=== PATIENT | female | born 1975 | race Caucasian/White ===

== ENCOUNTER 2020-07-10 06:41 | Emergency (ER) | payer OTHER, SELFPAY ==
[2020-07-10 06:44] VITALS: BP 161/83; PULSE 117; RESP 18; TEMP 36.1; O2SAT 100; BMI 20.7
--- NOTE | 2020-07-10 07:07 | ED_ITS ---
HPI - General Adult General Chief complaint: Abdominal Pain Stated complaint: ?KIDNEY STONES Time Seen by Provider: 07/10/20 06:59 Source: patient Mode of arrival: ambulatory Limitations: no limitations History of Present Illness HPI narrative: Patient comes emergency room complaining of left-sided flank pain. Patient states it has been hurting for about a week, however the pain became unbearable over night, came this morning because she started urinating blood. Patient states he has had multiple episodes of kidney stones, patient states that she has had multiple procedures of lithotripsy and stone basketing because she has never been able to pass them by herself. At this time, patient denies fever chills, complaining of dysuria and hematuria MD complaint: Flank pain, hematuria Related Data Previous Rx's Medication Instructions Recorded levothyroxine 75 mcg tablet 75 mcg PO DAILY 90 Days #90 tab 04/12/20 allopurinol 100 mg tablet 100 mg PO DAILY 90 Days #90 tab 04/21/20 ketorolac 10 mg PO Q6H PRN 5 Days tab 07/10/20 ketorolac 10 mg PO Q6H PRN 5 Days #14 tab 07/10/20 ketorolac 10 mg PO TID PRN 5 Days tab 07/10/20 ondansetron HCl [Zofran] 4 mg PO Q6H PRN #10 tab 07/10/20 prednisone 20 mg PO DAILY #7 tab 07/10/20 tamsulosin 0.4 mg PO DAILY #7 cap 07/10/20 Allergies Allergy/AdvReac Type Severity Reaction Status Date / Time No Known Allergies Allergy Unverified 03/25/20 18:58 [No Known Allergies*] Review of Systems Review of Systems: Constitutional : No Weight loss, No Fever, No Chills, No Night Sweats, No Fatigue, No Malaise ENT/Mouth : No Hearing loss, No Ear Pain, No Nasal Congestion, No Sinus Pain, No Hoarseness, No sore throat, No Rhinorrhea, No Swallowing Difficulty Eyes: No Eye Pain, No Swelling, No Redness, No Foreign Body, No Discharge, No Vision Changes Cardiovascular : No Chest Pain, No SOB, No Dyspnea on Exertion, No Orthopnea, No Edema, No Palpitations Respiratory : No Cough, No Sputum, No Wheezing, No Smoke Exposure, No Dyspnea Gastrointestinal : No Nausea, No Vomiting, No Diarrhea, No Constipation, No abdominal Pain, No Hematochezia, No Melena, patient complaining of left-sided flank pain radiating towards the left groin Genitourinary : Patient complaining of dysuria and hematuria Musculoskeletal : No joint pain, No Myalgias, No Joint Swelling Skin : No Skin Lesions, No rash Neuro : No Weakness, No Numbness, No Paresthesias, No Loss of Consciousness, No Dizziness, No Headache Psych : No Anxiety/Panic, No Depression, No SI/HI/AH/VH, No Social Issues, Heme/Lymph: No Bruising, No Bleeding,No Lymphadenopathy Endocrine : No Polyuria, No Polydipsia, No Temperature Intolerance [facility] Past Medical History Medical History (Updated 07/10/20 @ 10:36 by Rebeka Davila MD) Hypothyroidism Social History Social History Smoking Status: Never smoker Use of substances other than those prescribed or required for medical reasons: No Advance Directives: No Advance Directives Information Provided: Yes Physical Exam Vital Signs: Vital Signs: Last Vital Signs Temp 97.0 F 07/10/20 06:44 Pulse 111 H 07/10/20 08:00 Resp 18 07/10/20 08:00 BP 113/65 07/10/20 08:00 Pulse Ox 99 07/10/20 08:00 Body Mass Index 20.7 Appearance: Alert. Oriented X3. No acute distress. Patient unable to sit still, looks very uncomfortable Eyes: Pupils equal, round and reactive to light. ENT: Pharynx normal. Neck: Normal inspection. Neck supple. No lymph nodes noted. No crepitus CVS: Normal heart rate and rhythm. Pulses normal. Normal S1 and S2 Respiratory: No respiratory distress. Breath sounds normal. No Wheezing. No rales Abdomen: Soft and nontender. No rigidity. No distention. good BS x4, left flank pain, positive CVA left-sided Skin: Skin warm and dry. Normal skin color. Normal skin turgor. Extremities: No lower extremity edema. No lower extremity edema. No Lacerations . No Rash Neuro: Oriented X 3. No motor deficit. No sensory deficit. Moving all extermities. No slurred speech. Course Course Course Narrative: Patient does have a 4 mm stone in the left ureter. Patient feeling better. Patient will follow-up with Dr. Rod on Sunday. Medical Decision Making Lab Data Result diagrams: 07/10/20 07:20 07/10/20 07:20 Labs: Lab Results 07/10/20 07/10/20 07/10/20 Range/Units 07:20 07:20 07:20 WBC 8.3 (4.8-10.8) X10*3/uL RBC 5.33 (4.20-5.50) X10*6/uL Hgb 14.9 (12.0-16.0) g/dl Hct 45.0 (37-47) % MCV 84.4 (80-98) fL MCH 28.0 (27.0-33.0) pg MCHC 33.1 (31.0-35.0) g/dl RDW 11.9 (11.0-16.0) % Plt Count 180 (160-400) X10*3/uL MPV 10.3 (9.4-12.3) fL Immature Gran % (Auto) 0.2 (0.0-0.4) % Neut % (Auto) 79.2 H (45-73) % Lymph % (Auto) 13.7 L (20-40) % [place] % (Auto) 6.1 (2-11) % Eos % (Auto) 0.4 (0-4) % Baso % (Auto) 0.4 (0-2) % Lymph # (Auto) 1.1 L (1.2-4.9) X10*3/uL [place] # (Auto) 0.5 (0.1-1.2) X10*3/uL Eos # (Auto) 0.0 (0.0-0.4) X10*3/uL Baso # (Auto) 0.0 (0.0-0.2) X10*3/uL Abs Immat Gran (auto) 0.02 (0.00-0.03) X10*3/uL Absolute Neuts (auto) 6.6 (2.0-8.3) X10*3/uL Absolute Nucleated RBC 0.000 (0.0-0.012) X10*3/uL Nucleated RBC % (auto) 0.0 (0.0-0.2) /100WBC Sodium 139 (135-145) mmol/L Potassium 4.1 (3.3-5.1) mmol/l Chloride 105 (96-108) mmol/L Carbon Dioxide 25 (22-29) mmol/L Anion Gap 13 (12-20) BUN 18 H (9-16) mg/dL Creatinine 0.83 (0.5-1.4) mg/dL Estim Creat Clear Calc 74.6 Estimated GFR > 60 Random Glucose 95 (60-115) mg/dL Calcium 8.7 (8.4-10.2) mg/dL Urine Color YELLOW Urine Appearance HAZY Urine pH 5.0 (5.0-8.0) Ur Specific [place] >= 1.030 H (1.005-1.025) Urine Protein 2+ H (NEG-TRACE) MG/DL Urine Glucose (UA) NEG (NEG) MG/DL Urine Ketones NEG (NEG) MG/DL Urine Blood 3+ H (NEG) Urine Nitrite NEG (NEG) Ur Leukocyte Esterase NEG (NEG) Urine RBC TNTC H (0) /HPF Urine WBC 5-9 H (0-4) /HPF Ur Squamous Epith Cells 2+ /LPF Calcium Oxalate Crystal 1+ /LPF Urine Bacteria 1+ /LPF Urine Test NEGATIVE (NEGATIVE) Imaging Data CT scan - abdomen: Radiologist's impression: FINDINGS: LUNG BASES: The visualized lung bases are unremarkable apart from a small calcified granuloma within right lower lobe.. LIVER, GALLBLADDER, AND BILIARY TREE: The liver is normal in size, shape, and attenuation. No focal hepatic lesion or biliary ductal dilatation is present. Gallbladder unremarkable. PANCREAS: Unremarkable. SPLEEN: Unremarkable. ADRENAL GLANDS: Unremarkable. KIDNEYS AND URETERS: There is a 4 mm calculus within the distal left ureter just proximal to where it traverses the broad ligament, approximately 6 cm from the ureterovesical junction. There is minimal upstream hydroureter without significant pelvocaliectasis or hydronephrosis. There are multiple bilateral nonobstructive intrarenal calculi, at least 7 within the left kidney and 3 within the right kidney, majority of which are punctate in size, largest measuring 2 mm. BLADDER: Unremarkable. GASTROINTESTINAL TRACT: The small and large bowel are unremarkable. The appendix is unremarkable. ABDOMINAL WALL: No significant hernia is appreciated. LYMPH NODES: Normal. VASCULAR: Unremarkable. PELVIC VISCERA: Retroflexed uterus. No adnexal abnormalities. OSSEOUS STRUCTURES: Unremarkable. CT/CT abdomen pelvis wo con IMPRESSION: * There is a 4 mm calculus within the distal LEFT ureter just proximal to where it appears as the broad ligament, 6 cm proximal to the ureterovesical junction. Minimal left hydroureter. No significant hydronephrosis or perinephric stranding. * Bilateral nonobstructive calculi, most of which are punctate up to 2 mm. Discharge Plan Discharge Clinical Impression: Ureterolithiasis Patient Disposition: Home, Self-Care Instructions: Kidney Stones (ED), Flank Pain (ED) Additional Instructions: Please call Dr. Rod office on Sunday. Please follow-up with your primary care physician tomorrow. If you have any worsening or new symptoms, please return to the emergency room or call 911 Prescriptions: New ketorolac 10 mg tablet 10 mg PO Q6H PRN (Reason: pain) 5 Days RF: 0 tamsulosin 0.4 mg capsule 0.4 mg PO DAILY Qty: 7 RF: 0 prednisone 20 mg tablet 20 mg PO DAILY Qty: 7 RF: 0 ondansetron HCl [Zofran] 4 mg tablet 4 mg PO Q6H PRN (Reason: nausea and vomiting) Qty: 10 RF: 0 ketorolac 10 mg tablet 10 mg PO TID PRN (Reason: pain) 5 Days RF: 0 ketorolac 10 mg tablet 10 mg PO Q6H PRN (Reason: pain) 5 Days Qty: 14 RF: 0 No Action levothyroxine 75 mcg tablet 75 mcg PO DAILY 90 Days Qty: 90 RF: 2 allopurinol 100 mg tablet 100 mg PO DAILY 90 Days Qty: 90 RF: 2 Referrals: Steve Rod MD [Physician] - 2 days
[2020-07-10 07:27] LABS: MANUAL DIFF FLAG NO
[2020-07-10] MEDS: 0.9 % Sodium Chloride 1,000 ML 999 ML IVCONT (07:27)
[2020-07-10] MEDS: Ketorolac Tromethamine 30 MG/ML VIAL IVPUSH (07:27)
[2020-07-10] MEDS: ondansetron HCL 4 MG/2 ML VIAL IVPUSH (07:27)
[2020-07-10 07:30] VITALS: BP 119/78; PULSE 102; RESP 18; O2SAT 99
[2020-07-10 07:31] LABS: Glucose Urine UA NEG (NEG); Leukocyte Esterase Urine NEG (NEG); Nitrite Urine NEG (NEG); Specific Gravity - Urine >= 1.030 (1.005-1.025); Urine Blood 3+ (NEG); Urine Ketones NEG (NEG); Urine Protein 2+ MG/DL (NEG-TRACE)
[2020-07-10 07:38] LABS: Appearance Urine HAZY; Color Urine YELLOW
[2020-07-10 07:39] LABS: UPreg QC Valid YES; Urine Pregnancy NEGATIVE (NEGATIVE)
[2020-07-10 07:46] LABS: Basophils Percent Auto 0.4 % (0-2); Eosinophils Percent Auto 0.4 % (0-4); Hemoglobin 14.9 g/dl (12.0-16.0); Imm Gran Abs Auto 0.02 X10*3/uL (0.00-0.03); Imm Gran Pct Auto 0.2 % (0.0-0.4); Lymphocytes Absolute Auto 1.1 X10*3/uL (1.2-4.9); Lymphocytes Percent Auto 13.7 % (20-40); Mean Corpuscular HGB Conc 33.1 g/dl (31.0-35.0); Mean Corpuscular Volume 84.4 fL (80-98); Mean Platelet Volume 10.3 fL (9.4-12.3); Monocytes Absolute Auto 0.5 X10*3/uL (0.1-1.2); Monocytes Percent Auto 6.1 % (2-11); Neutrophils Absolute Auto 6.6 X10*3/uL (2.0-8.3); Neutrophils Percent Auto 79.2 % (45-73); Platelet Count 180 X10*3/uL (160-400); Red Blood Count 5.33 X10*6/uL (4.20-5.50); Red Cell Distribution Width 11.9 % (11.0-16.0); White Blood Count 8.3 X10*3/uL (4.8-10.8)
[2020-07-10 07:51] LABS: Bacteria Urine 1+ /LPF; Calcium Oxalate Crystals Urine 1+ /LPF; RBC Urine TNTC /HPF (0); Squamous Epithelial Cell Urine 2+ /LPF; UACC CULT YES
[2020-07-10 07:54] LABS: Anion Gap 13 (12-20); Blood Urea Nitrogen 18 mg/dL (9-16); Calcium 8.7 mg/dL (8.4-10.2); Carbon Dioxide 25 mmol/L (22-29); Chloride 105 mmol/L (96-108); Creatinine Clr Calc Pharmacy 74.6; Estimated Glomerular Filt Rate > 60; Glucose Random 95 mg/dL (60-115); Potassium 4.1 mmol/l (3.3-5.1); Sodium 139 mmol/L (135-145)
--- NOTE | 2020-07-10 07:56 | CT_ITS ---
EXAMINATION: CT ABDOMEN AND PELVIS WITHOUT CONTRAST CLINICAL INFORMATION: Left flank pain COMPARISON: 11/29/2019 TECHNIQUE: Multidetector volumetric imaging was performed from the superior aspect of the liver through the pubic symphysis. Sagittal and coronal reformatted images were obtained on the technologist's workstation. This CT examination was performed using dose optimization techniques as appropriate, variously including the following: *Automated exposure control *Adjustment of mA and/or kV according to patient size (this includes techniques or standardized protocols for targeted exams where dose is matched to indication/reason for exam; i.e. extremities or head) *Use of iterative reconstruction technique DLP: 394 mGy-cm FINDINGS: LUNG BASES: The visualized lung bases are unremarkable apart from a small calcified granuloma within right lower lobe.. LIVER, GALLBLADDER, AND BILIARY TREE: The liver is normal in size, shape, and attenuation. No focal hepatic lesion or biliary ductal dilatation is present. Gallbladder unremarkable. PANCREAS: Unremarkable. SPLEEN: Unremarkable. ADRENAL GLANDS: Unremarkable. KIDNEYS AND URETERS: There is a 4 mm calculus within the distal left ureter just proximal to where it traverses the broad ligament, approximately 6 cm from the ureterovesical junction. There is minimal upstream hydroureter without significant pelvocaliectasis or hydronephrosis. There are multiple bilateral nonobstructive intrarenal calculi, at least 7 within the left kidney and 3 within the right kidney, majority of which are punctate in size, largest measuring 2 mm. BLADDER: Unremarkable. GASTROINTESTINAL TRACT: The small and large bowel are unremarkable. The appendix is unremarkable. ABDOMINAL WALL: No significant hernia is appreciated. LYMPH NODES: Normal. VASCULAR: Unremarkable. PELVIC VISCERA: Retroflexed uterus. No adnexal abnormalities. OSSEOUS STRUCTURES: Unremarkable. CT/CT abdomen pelvis wo con IMPRESSION: * There is a 4 mm calculus within the distal LEFT ureter just proximal to where it appears as the broad ligament, 6 cm proximal to the ureterovesical junction. Minimal left hydroureter. No significant hydronephrosis or perinephric stranding. * Bilateral nonobstructive calculi, most of which are punctate up to 2 mm.
[2020-07-10 08:00] VITALS: BP 113/65; PULSE 111; RESP 18; O2SAT 99
--- NOTE | 2020-07-10 08:45 | PC.NURSE ---
S/P pain meds and warm compress given pt states pain is unchanged 04/17, appears sl restless and grimacing. Dr Davila aware
[2020-07-10] MEDS: Morphine Sulfate 4 MG/ML CARTRIDGE IVPUSH (08:54)
[2020-07-10 10:00] VITALS: BP 128/72; PULSE 103; RESP 16
== END 2020-07-10 11:00 | disposition home or self-care (01) ==
PROVIDERS: Emergency Provider Emergency Medicine; PCP Internal Medicine
DX: N20.2 Calculus of kidney with calculus of ureter (principal); Z87.442 Personal history of urinary calculi
CPT/HCPCS: 36415; 74176; 80048; 81001; 81025; 85025; 87086; 96361; 96374; 96375; 99284; J1885; J2270; J2405

== ENCOUNTER → 2020-07-12 13:12 | Outpatient (BNVA) | payer OTHER, SELFPAY | PROVIDERS: PCP Internal Medicine; Visit Provider Urology | DX: Z76.89 Persons encountering health services in other specified circumstances (principal) ==

== ENCOUNTER 2020-07-14 08:17 | Day surgery (SDC) | payer OTHER, SELFPAY ==
[2020-07-13 11:56] VITALS: BMI 20.5
--- NOTE | 2020-07-13 12:24 | P.CONAN_ITS ---
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 Non-toxic multinodular goiter Family History Family History Father Diabetes mellitus Mother Thyroid cancer Surgical History Surgical History History of ankle surgery History of hip surgery History of knee surgery Social History Social History Smoking Status: Never smoker Second Hand Smoke Exposure: No Use of substances other than those prescribed or required for medical reasons: No Advance Directives: No Advance Directives Information Provided: No Advance Directives on File: No Meds Allergies Allergy/AdvReac Type Severity Reaction Status Date / Time No Known Allergies Allergy Verified 07/14/20 09:05 [No Known Allergies*] Home Medications Medication Instructions Recorded Confirmed Type pyridoxine (vitamin B6) 50 mg 50 mg PO DAILY 07/12/20 07/12/20 History tablet Exam Exam Date and Time: July 13, 2020 1224 Height,Weight and Vital Signs: Height 5 ft 4 in Weight 54.431 kg Pertinent Lab Results Pertinent Lab Results: Laboratory Tests 07/10/20 07/10/20 07:20 07:20 WBC 8.3 Hgb 14.9 Hct 45.0 Plt Count 180 Sodium 139 Potassium 4.1 Chloride 105 Carbon Dioxide 25 BUN 18 H Creatinine 0.83 Assessment and Plan Assessment Anesthesia Assessment: Chart Reviewed Documented by User: Kika Dove 07/14/20 09:43 [facility] Past Medical History Medical History Fibrous dysplasia of bone Aleshia's disease Hypothyroidism 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 Non-toxic multinodular goiter Family History Family History Father Diabetes mellitus Mother Thyroid cancer Surgical History Surgical History History of ankle surgery History of hip surgery History of knee surgery Social History Social History Smoking Status: Never smoker Second Hand Smoke Exposure: No Use of substances other than those prescribed or required for medical reasons: No Advance Directives: No Advance Directives Information Provided: No Advance Directives on File: No Meds Allergies Allergy/AdvReac Type Severity Reaction Status Date / Time No Known Allergies Allergy Verified 07/14/20 09:05 [No Known Allergies*] Home Medications Medication Instructions Recorded Confirmed Type pyridoxine (vitamin B6) 50 mg 50 mg PO DAILY 07/12/20 07/12/20 History tablet Exam Airway Mallampati Class: II TM Dist: >3cm Neck ROM: Full Assessment and Plan Assessment Anesthesia Assessment: Anesthesia Plan Discussed and Chart Reviewed Final Anesthetic Review NPO: Yes ASA Class: II Final Preanesthetic Review: No Changes in Pt Med Stat, Meds/Allgs Chart Reviewed, Consent Obtained/Reviewed and Anes Risks/Benef Reviewed Patient Risk: Low Procedure Risk: Low Assessment/Block/Sedation in SS: Assess/Block/Sedation-SS Anesthetic Plan Anesthetic Plan: GA Disposition: Standard PACU
[2020-07-14] VITALS (8 sets, daily range): BP systolic 117–130; BP diastolic 67–77; PULSE 64–99; RESP 16–20; TEMP 36.3–36.6; O2SAT 98–100
[2020-07-14 08:53] LABS: UPreg QC Valid YES; Urine Pregnancy NEGATIVE (NEGATIVE)
[2020-07-14] MEDS: Lactated Ringers 1,000 ML 100 ML IVCONT (09:13)
[2020-07-14] MEDS: levoFLOXacin/D5W 500 MG/100 ML PIGGYBACK 100 MG IV (09:14)
--- NOTE | 2020-07-14 10:01 | MHC.SHP ---
Pre-Procedural Eval Section A The patient is an INPATIENT: No The History & Physical has been completed within 30 days and I have reviewed it.: Yes Section B Chief Complaint: Hydronephrosis Allergies: Allergies Allergy/AdvReac Type Severity Reaction Status Date / Time No Known Allergies Allergy Verified 07/14/20 09:05 [No Known Allergies*] Plan Diagnosis/Plan: Unchanged I have reviewed the history and physical and performed a pertinent physical examination on my patient. No changes have occurred unless specified.
--- NOTE | 2020-07-14 10:51 | P.BOP_ITS ---
Brief Operative Note Date of Service: 07/14/20 Pre-op diagnosis: left ureteral stone with hydro Post-op diagnosis: same Procedure: Cystoscopy left retrograde followed by ureteral dilatation, left ureteroscopy, laser stone ablation, stone extraction, placement of left double-J stent Implants: Six Turkish by 24 cm double-J stent with the string left in place. Taped to right inner thigh per patient request Surgeon: Latrell Tidwell III, MD Anesthesia: GLMA Estimated blood loss (mL): 0 Pathology: other ([employer] samples of stone sent to pathology) Condition: stable Disposition: same day
[2020-07-14] MEDS: Acetaminophen 325 MG TABLET 650 MG PO (11:10)
[2020-07-14] MEDS: oxyCODONE HCl Immed Release 5 MG TABLET PO (11:10)
[2020-07-14] MEDS: Ketorolac Tromethamine 15 MG/ML VIAL IVPUSH (11:10)
--- NOTE | 2020-07-14 12:07 | HO.POSTANES ---
Post Anesthesia Evaluation Post Anesthesia Evaluation Vital Signs: Vital Signs Temp Pulse Resp BP Pulse Ox 07/14/20 11:36 97.9 F 88 20 128/76 100 07/14/20 11:25 86 18 130/73 100 07/14/20 11:10 77 20 130/74 98 07/14/20 11:05 64 18 117/67 100 07/14/20 11:00 69 16 120/70 99 07/14/20 10:55 97.9 F 67 16 123/76 100 07/14/20 09:54 97.4 F 99 16 130/77 100 07/14/20 09:07 97.4 F 99 16 130/77 100 Anesthesia: General LMA Mental Status: Awake Pain Control: Satisfactory Nausea/Vomiting: None Hydration: Adequate Anesthesia-Related Issues: No Anes. Related Issues
--- NOTE | 2020-07-15 18:42 | OP_ITS ---
SURGEON: Latrell Tidwell III, MD PREOPERATIVE DIAGNOSIS: Left ureteral stone with hydronephrosis. POSTOPERATIVE DIAGNOSIS: Left ureteral stone with hydronephrosis. PROCEDURE PERFORMED: 1. Cystoscopy. 2. Left retrograde. 3. Left ureteral dilatation. 4. Left ureteroscopy. 5. Laser stone ablation. 6. Stone extraction. 7. Left stent placement. ESTIMATED BLOOD LOSS: None. COMPLICATIONS: None. ANESTHESIA: General. ASSISTANTS: SPECIMENS: COMPLICATIONS: None. DESCRIPTION OF PROCEDURE: The patient was taken to the operating room. After adequate anesthesia was obtained, had a time-out done demonstrating correct patient, correct procedure, and correct site. Following this, the patient subsequently underwent cystoscopy followed left retrograde demonstrated distal stone with hydronephrosis. The patient had a Glidewire pace without any difficulty. The ureteral dilatation was done and subsequently ureteroscopy was undertaken. Stone was encountered, fractured with the laser, removed with a Vangie-Catch basket, rechecked. There was no further stone in the patient's ureter. The patient had a 6-Guyanese x 24 cm double-J stent placed leaving the string on taped to the right anterior thigh per the patient request. The patient tolerated procedure well with no complications. SPECIMEN: Sent to pathology. DRAINS: 6-Guyanese x 24 cm double-J stent. MD BONITA Peña III/LOUISE / [id number]
== END 2020-07-14 12:22 | disposition home or self-care (01) ==
PROVIDERS: Nurse Practitioner; PCP Internal Medicine; Visit Provider Urology
PROC: (CPT 52356; principal; 2020-07-14 10:20)
DX: N13.2 Hydronephrosis with renal and ureteral calculous obstruction (principal); Z87.442 Personal history of urinary calculi; Q78.1 Polyostotic fibrous dysplasia; E03.9 Hypothyroidism, unspecified; E06.3 Autoimmune thyroiditis; Z79.52 Long term (current) use of systemic steroids; Z79.899 Other long term (current) drug therapy
CPT/HCPCS: 52356; 81025; 82365; 88300; C1769; C2617; J1100; J1580; J1885; J1956; J2405; J3010; Q9967

== ENCOUNTER 2021-01-04 09:53 | Outpatient (REF) | payer OTHER, SELFPAY ==
--- NOTE | ~2021-01-04 | US_ITS ---
EXAMINATION: US RETROPERITONEAL LIMITED (RENAL ONLY) CLINICAL INFORMATION: Hydronephrosis with renal and ureteral calculous obstruction. COMPARISON: CT abdomen and pelvis without contrast dated 07/10/2020. TECHNIQUE: Real-time imaging of the kidneys. FINDINGS: RIGHT KIDNEY: 9.9 x 4.3 x 5.4 cm (SAG x AP x TRV). The kidney is normal in size, contour, and echogenicity. Renal cortical thickness is normal. There are several small echogenic foci with twinkle artifact questionable for small stones. The largest measures 2 x 3 mm in the mid pole. No focal parenchymal lesions or hydronephrosis. LEFT KIDNEY: 11.1 x 4.6 x 4.1 cm (SAG x AP x TRV). The kidney is normal in size, contour, and echogenicity. Renal cortical thickness is normal. There is mild left hydronephrosis. There is a 4 x 8 mm stone is seen in the left proximal ureter. There are small left renal stones, largest measuring 3 mm in the upper pole No focal parenchymal lesions. INCIDENTAL FINDING: Bilateral ureteral jets are demonstrated. US/US renal BI IMPRESSION: Bilateral renal stones. Mild left hydronephrosis from a left proximal ureteral stone.
== END 2021-01-04 09:54 | disposition home or self-care (01) ==
LOC: HO.US 09:53
PROVIDERS: Visit Provider Urology
DX: N13.2 Hydronephrosis with renal and ureteral calculous obstruction (principal)
CPT/HCPCS: 76775

== ENCOUNTER 2021-01-06 06:19 | Outpatient (REF) | payer OTHER, SELFPAY ==
[2021-01-06 07:41] LABS: Alanine Aminotransferase 22 U/L (0-31); Albumin Level 4.6 g/dL (3.5-5.0); Alkaline Phosphatase 55 U/L (39-117); Anion Gap 10 (12-20); Aspartate Amino Transferase 21 U/L (5-31); Bilirubin Total 0.7 mg/dL (0.0-1.0); Blood Urea Nitrogen 22 mg/dL (9-16); Calcium 9.7 mg/dL (8.4-10.2); Carbon Dioxide 27 mmol/L (22-29); Chloride 107 mmol/L (96-108); Estimated Glomerular Filt Rate 59; Glucose Fasting 86 mg/dL (60-99); Magnesium 2.4 mg/dL (1.6-2.6); Phosphorus 3.5 mg/dL (2.7-4.5); Sodium 139 mmol/L (135-145); Total Protein 7.2 g/dL (6.5-8.0)
[2021-01-06 07:51] LABS: Free T4 (Free Thyroxine) 1.13 ng/dL (0.71-1.85); Thyroid Stimulating Hormone 0.54 uIU/mL (0.32-4.0); Vitamin D 25-OH Total 46.4 ng/mL (>30)
[2021-01-06 09:12] LABS: Total Volume 24 Hour Urine 2975 mL
[2021-01-06 09:46] LABS: Creatinine, 24Hr Urine 1.2 G/Day (1.0-2.0); Creatinine, mg/dL 41.99
[2021-01-07 13:12] LABS: Calcium (PTHI) 9.4 mg/dL (8.6-10.2); PTHI 47 pg/mL (14-64)
[2021-01-07 18:07] LABS: Calcium, 24 Hr Urine 470 mg/24 h; Calcium/Creatinine Ratio 359 mg/g creat (30-275); Creatinine 24Hr Urine 1.31 g/24 h (0.50-2.15)
[2021-01-11 08:42] LABS: Alkaline Phosphatase Bone 10.7 mcg/L (5.0-18.8)
[2021-01-13 06:22] LABS: VITAMIN D (1,25 OH) D3 70 pg/mL; Vit D (1,25-Dihydroxy) Total 70 pg/mL (18-72); Vitamin D (1,25 OH) D2 <8 pg/mL
== END 2021-01-06 06:20 | disposition home or self-care (01) ==
LOC: HO.LAB 06:19
PROVIDERS: PCP Internal Medicine; Visit Provider Internal Medicine Endocrinology, Diabetes & Metabolism
DX: E03.9 Hypothyroidism, unspecified (principal); N20.0 Calculus of kidney
CPT/HCPCS: 36415; 80053; 82306; 82340; 82570; 82652; 83735; 83970; 84075; 84100; 84439; 84443

== ENCOUNTER → 2021-01-13 10:47 | Outpatient (BNVA) | payer OTHER, SELFPAY | PROVIDERS: PCP Internal Medicine; Visit Provider Urology ==

== ENCOUNTER 2021-01-17 15:10 | Day surgery (SDC) | payer OTHER, SELFPAY ==
[2021-01-17] VITALS (15 sets, daily range): BP systolic 116–140; BP diastolic 73–103; PULSE 85–104; RESP 14–27; TEMP 36.5–37.2; O2SAT 96–99; BMI 22.1
--- NOTE | 2021-01-17 17:07 | P.CONAN_ITS ---
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 Non-toxic multinodular goiter Family History Family History Father Diabetes mellitus Mother Thyroid cancer Surgical History Surgical History History of ankle surgery History of hip surgery History of knee surgery Social History Social History Patient Tobacco Use Status: Never used Tobacco Second Hand Smoke Exposure: No Use of substances other than those prescribed or required for medical reasons: No Advance Directives: No Advance Directives Information Provided: No Recently lost weight without trying: No Meds Allergies Allergy/AdvReac Type Severity Reaction Status Date / Time No Known Allergies Allergy Verified 07/14/20 09:05 [No Known Allergies*] Home Medications Medication Instructions Recorded Confirmed Last Taken Type pyridoxine (vitamin B6) 50 mg 50 mg PO DAILY 07/12/20 07/12/20 Unknown History tablet Exam Exam Date and Time: January 17, 2021 1707 Height,Weight and Vital Signs: Height 5 ft 3 in Weight 56.699 kg Last Vital Signs Temp 98.9 F 01/17/21 15:25 Pulse 102 H 01/17/21 16:02 Resp 20 01/17/21 15:25 BP 116/77 01/17/21 16:02 Pulse Ox 97 01/17/21 15:25 Airway Mallampati Class: II TM Dist: >3cm Neck ROM: Full Denture: Upper Heart: RRR Lungs: CTA
--- NOTE | 2021-01-17 18:23 | MHC.SHP ---
Pre-Procedural Eval Section A Date of Service: 01/17/21 Section B Chief Complaint: Calculus of Kidney Details of Present Illness: Persistent pain on left side. Imaging with distal left stone. Recommendation for intervention. This is been organized for her to come in from home today. Relevant Family History (Specify if Yes): No Relevant Social History: None Present Medications: see Short Stay Collaborative assessment Medical History: No relevant PMH History of Previous Operations: Relevant previous surgery/procedure and date(s) Allergies: Allergies Allergy/AdvReac Type Severity Reaction Status Date / Time No Known Allergies Allergy Verified 07/14/20 09:05 [No Known Allergies*] Review of Systems Sugical H&P ROS: Negative: Constitution, Cardiovascular, Respiratory, Neurological, Psychiatric, Hem-Onc, Allergic/Immunologic, Gastrointestinal, Genitourinary, Musculoskeletal, Integumentary, Endocrine and Eyes/Ears/Nose/Throat Exam Surgical H&P Exam: Normal: HEENT, Normal: Heart, Normal: Lungs, Normal: Extremities, Normal: Abdomen, Normal: Skin and Normal: Neurological Plan Diagnosis/Plan: Unchanged (Left distal ureteroscopy, laser lithotripsy, stent placement) I have reviewed the history and physical and performed a pertinent physical examination on my patient. No changes have occurred unless specified.
[2021-01-17] MEDS: levoFLOXacin 500 MG TABLET PO (19:00)
--- NOTE | 2021-01-17 19:37 | W.PM.OPN ---
Operative Note Operative Note Date of Service: 01/17/21 Narrative: PreOperative Diagnosis: Left hydronephrosis with proximal ureteric stone Post Operative Diagnosis: Left renal stone Procedure: - left cystoscopy, retrograde - left dilatation of ureteric orifice under fluoroscopy - left ureteroscopy, stone basketing Surgeon: Dr Steve Rod Anesthesia: General Indications for procedure: Pain on left side in December. Imaging showed 6 mm stone in the upper ureter. Order past. Persistent pain with nausea. Requested intervention. Based on location proceeding with ureteroscopy, laser lithotripsy, stent placement Procedure: After informed consent was verified patient was brought to the operating placed in supine position. Anesthesia was administered per protocol. Patient was placed in modified dorsal lithotomy position and prepped and draped in a sterile fashion. Safety pause time-out and side of surgery confirmed. Antibiotics confirmed. Cystoscopy performed with 22 Cameroonian cystoscope. Both ureteric orifices normal position. Left ureteric orifice cannulated in an retrograde examination performed. No clear filling defects seen within the ureter. Question of filling defect within the kidney. Sensor guidewire placed. There was a large amount of debris that was then expelled from the left ureter. Rigid ureteroscopy performed. No stone encountered up to the upper ureter. Ureteric access sheath placed. Flexible ureteral scope performed. Stone encountered in kidney. Stone basketed and able to be withdrawn down access sheath. Rest of kidney examined. Dilated calices consistent with previous obstruction. Appeared to be chronic in nature. Decision made not to leave a stent. Flexible ureteral scope removed. Sheath removed. Bladder emptied. She tolerated the procedure well was extubated in operating room transferred in stable condition to the recovery area. Pathology: stones Drains: none
[2021-01-17] MEDS: ondansetron HCL 4 MG/2 ML VIAL IVPUSH (20:25)
[2021-01-17] MEDS: fentaNYL citrate/PF 100 MCG/2 ML VIAL 25 MCG IVPUSH ×4 (20:38→21:05)
[2021-01-17] MEDS: oxyCODONE HCl Immed Release 5 MG TABLET PO (20:51)
[2021-01-17] MEDS: Phenazopyridine HCL 100 MG TABLET PO (20:51)
--- NOTE | 2021-01-17 23:48 | HO.POSTANES ---
Post Anesthesia Evaluation Post Anesthesia Evaluation Vital Signs: Vital Signs Temp Pulse Resp BP Pulse Ox 01/17/21 21:10 89 27 H 137/74 97 01/17/21 21:05 97.9 F 88 17 137/76 96 01/17/21 20:56 16 01/17/21 20:55 88 16 128/73 97 01/17/21 20:48 16 01/17/21 20:44 92 16 120/79 97 01/17/21 20:38 88 17 133/77 98 01/17/21 20:30 85 17 140/77 H 99 01/17/21 20:15 89 16 128/80 99 01/17/21 20:00 92 16 128/80 99 01/17/21 19:55 89 16 136/74 98 01/17/21 19:50 94 15 130/80 98 01/17/21 19:48 97.7 F 88 14 139/78 96 01/17/21 16:02 102 H 116/77 01/17/21 15:25 98.9 F 104 H 20 126/103 H 97 Anesthesia: General Mental Status: Awake Pain Control: Satisfactory Nausea/Vomiting: None Hydration: Adequate Anesthesia-Related Issues: No Anes. Related Issues
[2021-01-22 20:12] LABS: Stone Source LEFT URETERAL STONE
== END 2021-01-17 21:32 | disposition home or self-care (01) ==
PROVIDERS: PCP Internal Medicine; Visit Provider Urology
PROC: (CPT 52352; principal; 2021-01-17 16:50)
DX: N20.0 Calculus of kidney (principal); R82.994 Hypercalciuria; E03.9 Hypothyroidism, unspecified; Z79.899 Other long term (current) drug therapy
CPT/HCPCS: 52352; 82365; 88300; C1769; C1894; J0131; J1100; J1885; J2250; J2405; J3010; Q9967

== ENCOUNTER 2021-01-19 19:45 | Inpatient (IN) | payer OTHER, SELFPAY ==
--- NOTE | ~2021-01-19 | CT_ITS ---
EXAMINATION: CT ABDOMEN AND PELVIS WITHOUT CONTRAST CLINICAL INFORMATION: Evaluate persistent fever and pain. COMPARISON: CT scan of the abdomen and pelvis dated 01/20/2021, 07/10/2020 and 09/29/2019. TECHNIQUE: Multidetector volumetric imaging was performed from the superior aspect of the liver through the pubic symphysis. Sagittal and coronal reformatted images were obtained on the technologist workstation. This CT examination was performed using dose optimization techniques as appropriate, variously including the following: *Automated exposure control *Adjustment of mA and/or kV according to patient size (this includes techniques or standardized protocols for targeted exams where dose is matched to indication/reason for exam; i.e. extremities or head) *Use of iterative reconstruction technique DLP: 424 mGy-cm. FINDINGS: LUNG BASES: 2 mm solid noncalcified pulmonary nodule in the lateral right lower lobe (series 7, image 3) is unchanged dating back to 09/29/2019, consistent with a benign finding. Mild dependent atelectasis in both lower lobes. Trace bilateral pleural effusions and associated mild dependent atelectasis. LIVER, GALLBLADDER, AND BILIARY TREE: The liver is normal in size, shape, and attenuation. No focal hepatic lesion on noncontrast imaging. No biliary ductal dilatation is present. The gallbladder is unremarkable with no evidence of radiopaque gallstones, gallbladder wall thickening, or obvious pericholecystic inflammatory changes. PANCREAS: Unremarkable on noncontrast imaging. SPLEEN, ADRENAL GLANDS: Unremarkable on noncontrast imaging. KIDNEYS AND URETERS: The left kidney is asymmetrically larger than the right kidney, measuring 12 cm versus 10 cm on the right side. Mild fullness of the left renal pelvis and proximal left ureter again seen, unchanged from recent prior study. There are at least 5 tiny 1 to 3 mm nonobstructing calcification seen scattered throughout the left kidney, too small to characterize with pixel attenuation values extending up to 217 Hounsfield units. There are also 3 punctate 1 to 2 mm calcification in the upper pole of the right kidney. Findings are similar to the appearance on 07/10/2020. No right hydronephrosis or hydroureter seen. Previously seen distal left ureteral calculus no longer visualized. No perinephric stranding. BLADDER: Unremarkable. PELVIC VISCERA: Uterus retroverted and retroflexed. No suspicious adnexal mass. Trace physiologic pelvic free fluid. GASTROINTESTINAL TRACT: The small and large bowel are decompressed. Residual contrast is seen throughout the colon. The appendix is unremarkable. ABDOMINAL WALL: No significant hernia is appreciated. LYMPH NODES, VASCULAR: Unremarkable. OSSEOUS STRUCTURES: Acute anterior angulation of the distal coccyx again seen, unchanged. No suspicious bone findings. CT/CT abdomen pelvis wo con IMPRESSION: 1. Mild persistent fullness of the left renal pelvis and proximal left ureter without obstructing stone or mass seen. 2. Bilateral tiny nonobstructing renal calculi are similar to prior study. 3. No evidence of obstructive uropathy. 4. Interval development of trace bilateral pleural effusions.
--- NOTE | ~2021-01-19 | CT_ITS ---
EXAMINATION: CT ABDOMEN AND PELVIS WITH CONTRAST CLINICAL INFORMATION: Flank pain, fever COMPARISON: 07/10/2020 TECHNIQUE: Multidetector volumetric images were obtained from the superior aspect of the liver through the pubic symphysis following administration 85 mL of Omnipaque 350 intravenous contrast. Sagittal and coronal reformatted images were obtained on the technologist's workstation. Oral contrast: No This CT examination was performed using dose optimization techniques as appropriate, variously including the following: *Automated exposure control *Adjustment of mA and/or kV according to patient size (this includes techniques or standardized protocols for targeted exams where dose is matched to indication/reason for exam; i.e. extremities or head) *Use of iterative reconstruction technique DLP: 429 mGy-cm FINDINGS: LUNG BASES: The visualized lung bases are unremarkable. LIVER, GALLBLADDER, AND BILIARY TREE: The liver is normal in size, shape, and attenuation. Small hypodensity near the gallbladder fossa is suggestive of a cyst. No biliary ductal dilatation is present. The gallbladder is unremarkable with no evidence of radiopaque gallstones, gallbladder wall thickening, or obvious pericholecystic inflammatory changes. PANCREAS: Unremarkable. SPLEEN: Unremarkable. ADRENAL GLANDS: Unremarkable. KIDNEYS AND URETERS: Bilateral nephrograms are symmetric. There are a few scattered tiny calculi in the left kidney, with no ureteral calculus seen. There is mild asymmetric prominence of the left renal pelvis and ureter, with mild mural enhancement noted. No right hydronephrosis. BLADDER: Partially distended with slight mural prominence. Focus of gas noted in the bladder. GASTROINTESTINAL TRACT: The small and large bowel are unremarkable. The appendix is unremarkable. ABDOMINAL WALL: No significant hernia is appreciated. LYMPH NODES: Normal. VASCULAR: There is mild atherosclerotic calcification. PELVIC VISCERA: Unremarkable. Small amount of free fluid is present in the pelvis. OSSEOUS STRUCTURES: Unremarkable. CT/CT abdomen pelvis w con IMPRESSION: 1. Mild mural enhancement of the left ureter and mildly dilated renal pelvis, which could reflect ascending infection in the setting of flank pain and fever. Few tiny scattered calculi in the left kidney, with no obstructing ureteral calculus seen. 2. Slight mural prominence of the urinary bladder, which could be secondary to cystitis. Small focus of gas in bladder could be secondary to recent catheterization or infection. 3. Trace nonspecific pelvic free fluid, which may be physiologic.
[2021-01-19 20:03] VITALS: BP 144/78; PULSE 120; RESP 18; TEMP 37.7; O2SAT 97; BMI 22.1
[2021-01-19 21:15] LABS: Appearance Urine HAZY; Color Urine YELLOW; Glucose Urine UA 100 MG/DL (NEG); Leukocyte Esterase Urine 2+ (NEG); Nitrite Urine POS (NEG); UACC Culture Trigger YES; Urine Blood 3+ (NEG); Urine Ketones NEG (NEG); Urine Protein 2+ MG/DL (NEG-TRACE)
[2021-01-19 21:17] LABS: UPreg QC Valid YES; Urine Pregnancy NEGATIVE (NEGATIVE)
[2021-01-19 21:24] VITALS: BP 116/72; PULSE 111; RESP 18; TEMP 37.9; O2SAT 98
[2021-01-19 21:25] LABS: Bacteria Urine 1+ /LPF; RBC Urine 30-49 /HPF (0); Squamous Epithelial Cell Urine 1+ /LPF
--- NOTE | 2021-01-19 21:25 | PC.NURSE ---
Patient states On Sunday01/17/21, I had an 8mm stone on my left side, that (urology) went in to break up the stone and put a stent in my kidney, but for whatever reason, he didn't put the stent in. I called before coming here and he told me to come in. Pt requesting COVID swab because the delta variant of COVID is running rampant and I was in the hospital for like 8 hours so I just want to rule it out . aware and to evaluate patient shortly. Will continue to monitor.
--- NOTE | 2021-01-19 22:34 | ED_ITS ---
HPI - Abdominal Pain General Chief Complaint: Abdominal Pain Stated Complaint: PT following up after surgery per PCP Time Seen by Provider: 01/19/21 22:25 Source: patient Mode of arrival: ambulatory History of Present Illness HPI narrative: 45-year-old female with history of calcium disorder and multiple lithotripsies for ureterolithiasis presents after lithotripsy 2 days ago and worsening left flank pain with fever, chills, nausea but denies any vomiting at this time. Patient endorses a history of sepsis secondary to her post lithotr ipsy procedures and states she feels like this may be similar. Related Data Home Medications Medication Instructions Recorded Confirmed pyridoxine (vitamin B6) 50 mg 50 mg PO DAILY 07/12/20 07/12/20 tablet Previous Rx's Medication Instructions Recorded allopurinol 100 mg tablet 100 mg PO DAILY 90 Days #90 tab 04/21/20 ketorolac 10 mg PO Q6H PRN 5 Days tab 07/10/20 ketorolac 10 mg PO Q6H PRN 5 Days #14 tab 07/10/20 ketorolac 10 mg PO TID PRN 5 Days tab 07/10/20 ondansetron HCl [Zofran] 4 mg PO Q6H PRN #10 tab 07/10/20 indapamide 2.5 mg tablet 2.5 mg PO DAILY 90 Days #90 tab 01/13/21 oxycodone-acetaminophen 5 mg-325 1 tab PO Q6H PRN #14 tab 01/13/21 mg tablet pyridoxine (vitamin B6) 100 mg 100 mg PO DAILY 90 Days #90 tab 01/13/21 tablet levothyroxine 75 mcg tablet 75 mcg PO DAILY #90 tab 01/17/21 phenazopyridine [Pyridium] 100 mg PO TID PRN 4 Days #12 tab 01/17/21 Allergies Allergy/AdvReac Type Severity Reaction Status Date / Time No Known Allergies Allergy Verified 01/19/21 21:39 [No Known Allergies*] Review of Systems Review of Systems Pertinent positives and negatives as stated in HPI 10 point review of systems is otherwise negative. Physical Exam Vital Signs: Vital Signs: Last Vital Signs Temp 100.2 F 01/19/21 21:24 Pulse 69 01/20/21 04:09 Resp 16 01/20/21 04:09 BP 118/53 L 01/20/21 04:09 Pulse Ox 98 01/20/21 04:09 Body Mass Index 22.1 VITAL SIGNS: Reviewed. GENERAL: Well developed, well nourished, in no acute distress. HEAD: Normocephalic/atraumatic EYES: PERRLA, EOMI EARS: Ext canals without abnormality NOSE: Nares patent bilateral OROPHARYNX: no oral lesions noted, posterior pharynx clear, tacky mucosa NECK: Supple, no adenopathy LUNGS: Normal breath sounds. No adventitious sounds or accessory muscle use. SpO2<98> CARDIOVASCULAR: Regular rate and rhythm without noted murmurs ABDOMEN: Soft, non-tender, non-distended with bowel sounds, left flank pain with positive CVA tenderness SKIN: Inspection of the skin reveals no rashes NEUROLOGIC: Alert and oriented x 4. Course Course Course Narrative: 2234: 45-year-old female with history and clinical presentation consistent with suspected pyelonephritis but possible recurrence of ureterolithiasis and on review of initial urinalysis evidence of UTI. Patient will receive antibiotics, and have lactic acid/blood culture/labs drawn, and IV fluids that she will receive are primarily for renal flushing as there is no current indication for sepsis fluids at this time. Patient will receive c ombination analgesics for fever and pain as well as Zofran for nausea. Review of all investigations consistent with pyelonephritis and on re-evaluation patient remains feeling poorly with nausea and pain. This case was discussed with the inpatient hospitalist who is agreeable for admission. MDM - Abdominal Pain Lab Data Result diagrams: 01/19/21 22:56 01/19/21 22:56 Labs: Lab Results 01/19/21 01/19/21 01/19/21 Range/Units 21:06 21:06 22:56 WBC 9.2 (4.8-10.8) X10*3/uL RBC 5.49 (4.20-5.50) X10*6/uL Hgb 15.4 (12.0-16.0) g/dl Hct 46.9 (37-47) % MCV 85.4 (80-98) fL MCH 28.1 (27.0-33.0) pg MCHC 32.8 (31.0-35.0) g/dl RDW 12.3 (11.0-16.0) % Plt Count 115 L D (160-400) X10*3/uL MPV 10.4 (9.4-12.3) fL Immature Gran % (Auto) 0.1 (0.0-0.4) % Neut % (Auto) 83.8 H (45-73) % Lymph % (Auto) 10.4 L (20-40) % [place] % (Auto) 5.5 (2-11) % Eos % (Auto) 0.0 (0-4) % Baso % (Auto) 0.2 (0-2) % Lymph # (Auto) 1.0 L (1.2-4.9) X10*3/uL [place] # (Auto) 0.5 (0.1-1.2) X10*3/uL Eos # (Auto) 0.0 (0.0-0.4) X10*3/uL Baso # (Auto) 0.0 (0.0-0.2) X10*3/uL Abs Immat Gran (auto) 0.01 (0.00-0.03) X10*3/uL Absolute Neuts (auto) 7.7 (2.0-8.3) X10*3/uL Absolute Nucleated RBC 0.000 (0.0-0.012) X10*3/uL Nucleated RBC % (auto) 0.0 (0.0-0.2) /100WBC Sodium (135-145) mmol/L Potassium (3.3-5.1) mmol/L Chloride (96-108) mmol/L Carbon Dioxide (22-29) mmol/L Anion Gap (12-20) BUN (9-16) mg/dL Creatinine (0.5-1.4) mg/dL Estim Creat Clear Calc Estimated GFR Random Glucose (60-115) mg/dL Lactic Acid (0.5-2.0) mmol/L Calcium (8.4-10.2) mg/dL Total Bilirubin (0.0-1.0) mg/dL AST (5-31) U/L ALT (0-31) U/L Alkaline Phosphatase (39-117) U/L Total Protein (6.5-8.0) g/dL Albumin (3.5-5.0) g/dL Urine Color YELLOW Urine Appearance HAZY Urine pH 5.0 (5.0-8.0) Ur Specific [place] 1.010 (1.005-1.025) Urine Protein 2+ H (NEG-TRACE) MG/DL Urine Glucose (UA) 100 H (NEG) MG/DL Urine Ketones NEG (NEG) MG/DL Urine Blood 3+ H (NEG) Urine Nitrite POS H (NEG) Ur Leukocyte Esterase 2+ H (NEG) Urine RBC 30-49 H (0) /HPF Urine WBC 5-9 H (0-4) /HPF Ur Squamous Epith Cells 1+ /LPF Urine Bacteria 1+ /LPF Urine Test NEGATIVE (NEGATIVE) COVID-19 (DONIS) (Negative) COVID-19 Clin Com 01/19/21 01/19/21 01/20/21 Range/Units 22:56 22:56 00:20 WBC (4.8-10.8) X10*3/uL RBC (4.20-5.50) X10*6/uL Hgb (12.0-16.0) g/dl Hct (37-47) % MCV (80-98) fL MCH (27.0-33.0) pg MCHC (31.0-35.0) g/dl RDW (11.0-16.0) % Plt Count (160-400) X10*3/uL MPV (9.4-12.3) fL Immature Gran % (Auto) (0.0-0.4) % Neut % (Auto) (45-73) % Lymph % (Auto) (20-40) % [place] % (Auto) (2-11) % Eos % (Auto) (0-4) % Baso % (Auto) (0-2) % Lymph # (Auto) (1.2-4.9) X10*3/uL [place] # (Auto) (0.1-1.2) X10*3/uL Eos # (Auto) (0.0-0.4) X10*3/uL Baso # (Auto) (0.0-0.2) X10*3/uL Abs Immat Gran (auto) (0.00-0.03) X10*3/uL Absolute Neuts (auto) (2.0-8.3) X10*3/uL Absolute Nucleated RBC (0.0-0.012) X10*3/uL Nucleated RBC % (auto) (0.0-0.2) /100WBC Sodium 138 (135-145) mmol/L Potassium 3.6 D (3.3-5.1) mmol/L Chloride 99 (96-108) mmol/L Carbon Dioxide 27 (22-29) mmol/L Anion Gap 16 (12-20) BUN 23 H (9-16) mg/dL Creatinine 1.29 (0.5-1.4) mg/dL Estim Creat Clear Calc 45.5 Estimated GFR 45 Random Glucose 89 (60-115) mg/dL Lactic Acid 1.6 (0.5-2.0) mmol/L Calcium 10.1 (8.4-10.2) mg/dL Total Bilirubin 0.8 (0.0-1.0) mg/dL AST 24 (5-31) U/L ALT 19 (0-31) U/L Alkaline Phosphatase 55 (39-117) U/L Total Protein 7.4 (6.5-8.0) g/dL Albumin 4.6 (3.5-5.0) g/dL Urine Color Urine Appearance Urine pH (5.0-8.0) Ur Specific [place] (1.005-1.025) Urine Protein (NEG-TRACE) MG/DL Urine Glucose (UA) (NEG) MG/DL Urine Ketones (NEG) MG/DL Urine Blood (NEG) Urine Nitrite (NEG) Ur Leukocyte Esterase (NEG) Urine RBC (0) /HPF Urine WBC (0-4) /HPF Ur Squamous Epith Cells /LPF Urine Bacteria /LPF Urine Test (NEGATIVE) COVID-19 (DONIS) Negative (Negative) COVID-19 Clin Com See Note Discharge Plan Discharge Clinical Impression: Pyelonephritis, Sepsis Patient Disposition: Admitted As Inpatient Prescriptions: No Action allopurinol 100 mg tablet 100 mg PO DAILY 90 Days Qty: 90 RF: 2 levothyroxine 75 mcg tablet 75 mcg PO DAILY Qty: 90 RF: 2 ketorolac 10 mg tablet 10 mg PO Q6H PRN (Reason: pain) 5 Days RF: 0 ondansetron HCl [Zofran] 4 mg tablet 4 mg PO Q6H PRN (Reason: nausea and vomiting) Qty: 10 RF: 0 ketorolac 10 mg tablet 10 mg PO TID PRN (Reason: pain) 5 Days RF: 0 ketorolac 10 mg tablet 10 mg PO Q6H PRN (Reason: pain) 5 Days Qty: 14 RF: 0 oxycodone-acetaminophen [Percocet] 5-325 mg tablet 1 tab PO Q6H PRN (Reason: pain) Qty: 14 RF: 0 phenazopyridine [Pyridium] 100 mg tablet 100 mg PO TID PRN (Reason: spasm) 4 Days Qty: 12 RF: 0 pyridoxine (vitamin B6) 50 mg tablet 50 mg PO DAILY RF: 0 indapamide 2.5 mg tablet 2.5 mg PO DAILY 90 Days Qty: 90 RF: 1 pyridoxine (vitamin B6) 100 mg tablet 100 mg PO DAILY 90 Days Qty: 90 RF: 1 PMFSH Past Medical History Source: nursing notes reviewed Medical History 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
[2021-01-19 23:02] LABS: Basophils Percent Auto 0.2 % (0-2); Hemoglobin 15.4 g/dl (12.0-16.0); PLT CLUMP 1; SCAN SMEAR FLAG 1
[2021-01-19 23:04] LABS: Hematocrit 46.9 % (37-47); Imm Gran Abs Auto 0.01 X10*3/uL (0.00-0.03); Imm Gran Pct Auto 0.1 % (0.0-0.4); Lymphocytes Percent Auto 10.4 % (20-40); Mean Corpuscular HGB Conc 32.8 g/dl (31.0-35.0); Mean Corpuscular Hemoglobin 28.1 pg (27.0-33.0); Mean Corpuscular Volume 85.4 fL (80-98); Mean Platelet Volume 10.4 fL (9.4-12.3); Monocytes Absolute Auto 0.5 X10*3/uL (0.1-1.2); Monocytes Percent Auto 5.5 % (2-11); Neutrophils Absolute Auto 7.7 X10*3/uL (2.0-8.3); Neutrophils Percent Auto 83.8 % (45-73); Platelet Count 115 X10*3/uL (160-400); Red Blood Count 5.49 X10*6/uL (4.20-5.50); Red Cell Distribution Width 12.3 % (11.0-16.0); White Blood Count 9.2 X10*3/uL (4.8-10.8)
[2021-01-19 23:07] LABS: MANUAL DIFF FLAG NO
[2021-01-19 23:21] LABS: Lactic Acid 1.6 mmol/L (0.5-2.0)
[2021-01-19 23:25] LABS: Alanine Aminotransferase 19 U/L (0-31); Albumin Level 4.6 g/dL (3.5-5.0); Alkaline Phosphatase 55 U/L (39-117); Anion Gap 16 (12-20); Aspartate Amino Transferase 24 U/L (5-31); Bilirubin Total 0.8 mg/dL (0.0-1.0); Blood Urea Nitrogen 23 mg/dL (9-16); Calcium 10.1 mg/dL (8.4-10.2); Carbon Dioxide 27 mmol/L (22-29); Chloride 99 mmol/L (96-108); Creatinine Clr Calc Pharmacy 45.5; Estimated Glomerular Filt Rate 45; Glucose Random 89 mg/dL (60-115); Potassium 3.6 mmol/L (3.3-5.1); Sodium 138 mmol/L (135-145); Total Protein 7.4 g/dL (6.5-8.0)
[2021-01-19 23:40] VITALS: BP 112/70; PULSE 99; RESP 16; O2SAT 96
[2021-01-19] MEDS: cefTRIAXone sodium 1 GM in 0.9 % Sodium Chloride 50 ML IV (23:48)
[2021-01-19] MEDS: Acetaminophen 325 MG TABLET 975 MG PO (23:49)
[2021-01-19] MEDS: Ketorolac Tromethamine 15 MG/ML VIAL IVPUSH (23:49)
[2021-01-19] MEDS: ondansetron HCL 4 MG/2 ML VIAL IVPUSH (23:49)
[2021-01-19] MEDS: 0.9 % Sodium Chloride 1,000 ML 999 ML IV (23:49)
[2021-01-20] VITALS (9 sets, daily range): BP systolic 103–122; BP diastolic 53–68; PULSE 68–106; RESP 14–18; TEMP 36.8–37.8; O2SAT 97–100
[2021-01-20 00:39] LABS: COVID-19 Test Negative (Negative)
[2021-01-20] MEDS: iohexoL 350 MG/ML 100 ML INFUS..BTL 85 ML IV (01:12)
--- NOTE | 2021-01-20 05:21 | PC.NURSE ---
(hospitalist) at bedside speaking with patient. Aware of plan for admission.
--- NOTE | 2021-01-20 05:28 | P.HPHOSP_ITS ---
History of Present Illness Date of Service: 01/20/21 Chief Complaint: abdominal pain Old female with past medical history of hypothyroidism, hypercalciuria, history of kidney stones, acute Norris syndrome who presents to the hospital with complaints of abdominal pain. Patient reports that she underwent lithotripsy for kidney stone outpatient on Sunday, but yesterday developed left flank pain, abdominal pain, nausea, low appetite, fever and chills. She called her urologist and decided to come to the ED for further management. She she is having suprapubic pain. Flank pain is radiating to the groin. She is also having urinary frequency, urgency, dysuria. She denies any chest pain, no diarrhea constipation, no lower extremity edema, headache change in vision, no numbness weakness or tingling. On arrival to the ED hemodynamically stable with a temp of 100?, heart rate of 120, respiratory rate of 18, blood pressure of 144/78, satting 97 on room air Labs are significant for WBC count of 9.2, BUN of 23, creatinine of 1.29 with a baseline around 0.8, UA positive for leukocyte Estrace, nitrites, and WBC Abdominal CT shows mild mural enhancement of the left ureter and mildly dilated renal pelvis which could reflect ascending infection in the setting of flank pain. Few tiny scattered calculi in the left kidney with no obstructing urethral calculus seen. 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 Non-toxic multinodular goiter Family History Father Diabetes mellitus Mother Thyroid cancer Surgical History History of ankle surgery History of hip surgery History of knee surgery Social History Patient Tobacco Use Status: Never used Tobacco Second Hand Smoke Exposure: No Advance Directives: No Advance Directives Information Provided: Yes Patient : No Meds Allergies Allergy/AdvReac Type Severity Reaction Status Date / Time No Known Allergies Allergy Verified 01/19/21 21:39 [No Known Allergies*] Home Medications Medication Instructions Recorded Confirmed Last Taken Type allopurinol 1 tab PO DAILY 01/20/21 01/20/21 01/19/21 History indapamide 1 tab PO DAILY 01/20/21 01/20/21 01/19/21 History levothyroxine 1 tab PO DAILY 01/20/21 01/20/21 01/19/21 History oxycodone-acetaminophen 1 tab PO Q6H PRN 01/20/21 01/20/21 01/19/21 History pyridoxine (vitamin B6) [Vitamin 1 tab PO DAILY 01/20/21 01/20/21 01/19/21 History B-6] Physical Exam Vital Signs and Narrative: Vital Signs: Last Vital Signs Temp 100.2 F 01/19/21 21:24 Pulse 69 01/20/21 04:09 Resp 16 01/20/21 04:09 BP 118/53 L 01/20/21 04:09 Pulse Ox 98 01/20/21 04:09 Body Mass Index 22.1 Const: General: cooperative and no acute distress Orientation/consciousness: patient oriented x3 Eyes: General: appearance normal, both eyes and all related structures Resp: Effort & Inspection: normal respiratory effort and able to speak in complete sentences Cardio: Rate: regular rate Rhythm: regular rhythm GI: Palpation (GI): Soft to palpation Auscultation: normal bowel sounds : Other: Bilateral CVA tenderness worse on the left Skin: General skin exam: no rashes or lesions noted Neuro: General: patient oriented x3 Cognition (Neuro): normal cognition Extrem: General: Yes normal to inspection and Yes no pedal edema Results Labs CBC and Chem 7: 01/19/21 22:56 01/19/21 22:56 Labs: Laboratory Results - last 24 hr 01/19/21 01/19/21 01/19/21 21:06 21:06 22:56 MCV 85.4 MCH 28.1 MCHC 32.8 RDW 12.3 Plt Count 115 L D MPV 10.4 Immature Gran % (Auto) 0.1 Neut % (Auto) 83.8 H Lymph % (Auto) 10.4 L [place] % (Auto) 5.5 Eos % (Auto) 0.0 Baso % (Auto) 0.2 Lymph # (Auto) 1.0 L [place] # (Auto) 0.5 Eos # (Auto) 0.0 Baso # (Auto) 0.0 Abs Immat Gran (auto) 0.01 Absolute Neuts (auto) 7.7 Absolute Nucleated RBC 0.000 Nucleated RBC % (auto) 0.0 Anion Gap Estim Creat Clear Calc Estimated GFR Random Glucose Lactic Acid Calcium Total Bilirubin AST ALT Alkaline Phosphatase Total Protein Albumin Urine Color YELLOW Urine Appearance HAZY Urine pH 5.0 Ur Specific [place] 1.010 Urine Protein 2+ H Urine Glucose (UA) 100 H Urine Ketones NEG Urine Blood 3+ H Urine Nitrite POS H Ur Leukocyte Esterase 2+ H Urine RBC 30-49 H Urine WBC 5-9 H Ur Squamous Epith Cells 1+ Urine Bacteria 1+ Urine Test NEGATIVE COVID-19 (DONIS) [employer] 01/19/21 01/19/21 01/20/21 22:56 22:56 00:20 MCV MCH MCHC RDW Plt Count MPV Immature Gran % (Auto) Neut % (Auto) Lymph % (Auto) [place] % (Auto) Eos % (Auto) Baso % (Auto) Lymph # (Auto) [place] # (Auto) Eos # (Auto) Baso # (Auto) Abs Immat Gran (auto) Absolute Neuts (auto) Absolute Nucleated RBC Nucleated RBC % (auto) Anion Gap 16 Estim Creat Clear Calc 45.5 Estimated GFR 45 Random Glucose 89 Lactic Acid 1.6 Calcium 10.1 Total Bilirubin 0.8 AST 24 ALT 19 Alkaline Phosphatase 55 Total Protein 7.4 Albumin 4.6 Urine Color Urine Appearance Urine pH Ur Specific [place] Urine Protein Urine Glucose (UA) Urine Ketones Urine Blood Urine Nitrite Ur Leukocyte Esterase Urine RBC Urine WBC Ur Squamous Epith Cells Urine Bacteria Urine Test COVID-19 (DONIS) Negative COVID-19 [email or web address] See Note Imaging Radiologist's Impressions: Impressions Abdomen/Pelvis CT 01/20/21 01:00 IMPRESSION: 1. Mild mural enhancement of the left ureter and mildly dilated renal pelvis, which could reflect ascending infection in the setting of flank pain and fever. Few tiny scattered calculi in the left kidney, with no obstructing ureteral calculus seen. 2. Slight mural prominence of the urinary bladder, which could be secondary to cystitis. Small focus of gas in bladder could be secondary to recent catheterization or infection. 3. Trace nonspecific pelvic free fluid, which may be physiologic. Assessment and Plan (1) Pyelonephritis: Status: Acute (2) Sepsis: Status: Acute (3) Hypercalcinuria: Status: Acute (4) Ureteral stone with hydronephrosis: Status: Acute (5) Nephrolithiasis: Status: Acute (6) SPRING (acute kidney injury): Status: Acute 45-year-old female with past medical history of hypercalciuria and recurrent kidney stone presents to the hospital following lithotripsy with abdominal pain, found to have pyelonephritis # sepsis - tachycardic, has fever - secondary to pyelonephritis - start her on cefepime given recent kidney stone - follow culture - IV fluids # pyelonephritis - secondary to kidney stones - underwent lithotripsy on Sunday01/17/2021 - will start her on cefepime - follow cultures # SPRING - most likely secondary to acute infection - started on IV fluids - follow BMP # nephrolithiasis - no obstructing stone at this time - IV fluids # hypercalciuria - will hold off on allopurinol given SPRING - resume once kidney function returns to baseline # hypothyroidism - continue levothyroxine DVT prophylaxis: Lovenox Quality Stroke Does the patient have a stroke diagnosis?: No VTE Prior VTE?: No VTE Risk Level:: Medical - moderate - high VTE Device Contraindication: Treatment Not Indicated VTE Drug Contraindication: N/A - Med Ordered
[2021-01-20] MEDS: cefEPime HCl 1 GM in 0.9 % Sodium Chloride 50 ML IV ×3 (06:06→21:44)
[2021-01-20] MEDS: Enoxaparin Sodium 40 MG/0.4 ML SYRINGE SUBCUT (06:07)
[2021-01-20] MEDS: Morphine Sulfate 4 MG/ML CARTRIDGE IVPUSH ×4 (06:07→21:43)
[2021-01-20] MEDS: Acetaminophen 325 MG TABLET 650 MG PO ×2 (06:07→18:04)
[2021-01-20] MEDS: ondansetron HCL 4 MG/2 ML VIAL IVPUSH ×2 (06:07→21:43)
--- NOTE | 2021-01-20 06:22 | PC.NURSE ---
Levothyroxine 75mcg unavailable in ED Pyxis. Pharmacy contacted to bring medication to ED. Will administer medication upon receipt.
[2021-01-20] MEDS: Lactated Ringers 1,000 ML 100 ML IVCONT ×2 (08:04→14:04)
--- NOTE | 2021-01-20 10:40 | MHC.CM.PN ---
Met with patient in regards to discharge planning. Patient lives with her parents, ambulates independently, still works and had no services prior to coming to the hospital. No services anticipated to be needed because patient is not homebound. PCP verified. Patient's mother has a copy of her HCP and she will attempt to obtain a copy. Patient received 2nd Pfizer on 10/10. Patient's car is in the parking lot and she will transport herself home when medically stable. Continue to monitor for d/c needs.
[2021-01-21] VITALS: BP 117/59; PULSE 94; RESP 18; TEMP 37; O2SAT 94
[2021-01-21] MEDS: Lactated Ringers 1,000 ML 100 ML IVCONT ×3 (01:15→23:34)
[2021-01-21 03:34] VITALS: BP 131/59; PULSE 109; RESP 16; TEMP 38.2; O2SAT 97
[2021-01-21] MEDS: Morphine Sulfate 4 MG/ML CARTRIDGE IVPUSH ×4 (04:29→19:45)
[2021-01-21] MEDS: Acetaminophen 325 MG TABLET 650 MG PO ×2 (04:29→13:02)
[2021-01-21] MEDS: Levothyroxine Sodium 75 MCG TABLET PO (05:57)
[2021-01-21] MEDS: cefEPime HCl 1 GM in 0.9 % Sodium Chloride 50 ML IV ×3 (05:57→20:24)
[2021-01-21] MEDS: Enoxaparin Sodium 40 MG/0.4 ML SYRINGE SUBCUT (05:57)
[2021-01-21 06:43] LABS: Eosinophils Percent Auto 0.3 % (0-4)
[2021-01-21 06:45] LABS: Basophils Percent Auto 0.1 % (0-2); Hematocrit 39.7 % (37-47); Hemoglobin 13.1 g/dl (12.0-16.0); Imm Gran Abs Auto 0.02 X10*3/uL (0.00-0.03); Imm Gran Pct Auto 0.3 % (0.0-0.4); Lymphocytes Absolute Auto 0.7 X10*3/uL (1.2-4.9); Lymphocytes Percent Auto 10.1 % (20-40); Mean Corpuscular Hemoglobin 28.3 pg (27.0-33.0); Mean Corpuscular Volume 85.7 fL (80-98); Mean Platelet Volume 10.6 fL (9.4-12.3); Monocytes Absolute Auto 0.7 X10*3/uL (0.1-1.2); Monocytes Percent Auto 10.2 % (2-11); Neutrophils Absolute Auto 5.3 X10*3/uL (2.0-8.3); Red Blood Count 4.63 X10*6/uL (4.20-5.50); Red Cell Distribution Width 12.2 % (11.0-16.0); White Blood Count 6.7 X10*3/uL (4.8-10.8)
[2021-01-21 07:03] LABS: Platelet Count 94 X10*3/uL (160-400)
[2021-01-21 07:15] LABS: Anion Gap 11 (12-20); Blood Urea Nitrogen 12 mg/dL (9-16); Calcium 8.9 mg/dL (8.4-10.2); Carbon Dioxide 27 mmol/L (22-29); Chloride 104 mmol/L (96-108); Creatinine Clr Calc Pharmacy 53.4; Estimated Glomerular Filt Rate 54; Glucose Random 95 mg/dL (60-115); Potassium 3.6 mmol/L (3.3-5.1); Sodium 138 mmol/L (135-145)
[2021-01-21 07:45] VITALS: BP 105/68; PULSE 20; RESP 89; TEMP 37.2; O2SAT 97
[2021-01-21] MEDS: hydroCHLOROthiazide 50 MG TABLET PO (09:34)
[2021-01-21] MEDS: ondansetron HCL 4 MG/2 ML VIAL IVPUSH (09:34)
[2021-01-21 11:23] VITALS: BP 110/56; PULSE 93; RESP 18; TEMP 37.1; O2SAT 98
--- NOTE | 2021-01-21 12:41 | HO.PM.IMPN ---
Subjective Subjective Date of Service: 01/21/21 Interval History: the patient was seen and evaluated this morning Laying in bed, still complaining of back pain and burning urination Had low-grade fevers overnight and reporting chills No reported other overnight events. Systemic review: Reporting fever, chills and weakness No chest pain, palpitation No shortness of breath or coughing No abdominal pain, nausea or vomiting Burning urination back pain No any rash or wounds Physical Exam Vital Signs: Vital Signs: Last Vital Signs Temp 98.7 F 01/21/21 11:23 Pulse 93 01/21/21 11:23 Resp 18 01/21/21 11:23 BP 110/56 L 01/21/21 11:23 Pulse Ox 98 01/21/21 11:23 Body Mass Index 22.1 Const: Other: Constitutional : Alert, oriented, not in distress Neck : Normal inspection, Supple Cardiovascular : RRR, S1 S2, no lower extremity edema Respiratory : Good bilateral air entry, no crackles, wheezes or rhonchi Gastrointestinal: soft, lax, Normal bowel sounds, Non tender Skin : Warm/Dry, No rash CVA tenderness on the left side Neurological : Alert & oriented x3, No focal deficit Objective Data Current Medications Generic Name Dose Route Start Last Admin Trade Name Freq PRN Reason Stop Dose Admin Acetaminophen 650 mg 01/20/21 05:36 01/21/21 04:29 Acetaminophen 325 Mg Tablet PO 650 mg Q6H PRN Administration Pain, Mild (Pain Scale 1-3) Docusate Sodium 100 mg 01/20/21 05:36 Docusate Sodium 100 Mg Capsule PO DAILY PRN Constipation Enoxaparin Sodium 40 mg 01/20/21 06:00 01/21/21 05:57 Enoxaparin Sodium 40 Mg/0.4 Ml Syringe SUBCUT 40 mg Q24H YOKASTA Administration Hydrochlorothiazide 50 mg 01/20/21 09:00 01/21/21 09:34 Hydrochlorothiazide 50 Mg Tablet PO 50 mg DAILY YOKASTA Administration Cefepime HCl 1 gm/ Sodium 50 mls @ 100 mls/hr 01/20/21 14:00 01/21/21 06:30 Chloride IV Infused Q8H YOKASTA Infusion Lactated Ringer's 1,000 mls @ 100 mls/hr 01/20/21 06:00 01/21/21 11:37 Lr IVCONT Infused .Q10H YOKASTA Infusion Levothyroxine Sodium 75 mcg 01/20/21 06:00 01/21/21 05:57 Levothyroxine Sodium 75 Mcg Tablet PO 75 mcg DAILY@0600 [facility] Administration Morphine Sulfate 4 mg 01/20/21 05:36 01/21/21 09:34 Morphine Sulfate 4 Mg/Ml Cartridge IVPUSH 4 mg Q4H PRN Administration Pain, Severe (Pain Scale 7-10) Ondansetron HCl 4 mg 01/20/21 05:36 01/21/21 09:34 Ondansetron Hcl 4 Mg/2 Ml Vial IVPUSH 4 mg Q8H PRN Administration Nausea and Vomiting Sodium Chloride 3 ml 01/20/21 08:00 01/21/21 07:38 0.9 % Sodium Chloride Flush 3 Ml Syringe IVFLUSH Not Given QSHIFT [facility] Labs CBC & Chem 7: 01/21/21 06:06 01/21/21 06:06 Labs: Laboratory Results - last 24 hr 01/21/21 01/21/21 06:06 06:06 WBC 6.7 RBC 4.63 Hgb 13.1 Hct 39.7 MCV 85.7 MCH 28.3 MCHC 33.0 RDW 12.2 Plt Count 94 L MPV 10.6 Immature Gran % (Auto) 0.3 Neut % (Auto) 79.0 H Lymph % (Auto) 10.1 L [place] % (Auto) 10.2 Eos % (Auto) 0.3 Baso % (Auto) 0.1 Lymph # (Auto) 0.7 L [place] # (Auto) 0.7 Eos # (Auto) 0.0 Baso # (Auto) 0.0 Abs Immat Gran (auto) 0.02 Absolute Neuts (auto) 5.3 Absolute Nucleated RBC 0.000 Nucleated RBC % (auto) 0.0 Sodium 138 Potassium 3.6 Chloride 104 Carbon Dioxide 27 Anion Gap 11 L BUN 12 Creatinine 1.10 Estim Creat Clear Calc 53.4 Estimated GFR 54 Random Glucose 95 Calcium 8.9 D Microbiology Microbiology Results: Microbiology 01/19/21 21:17 Urine Culture - Final Urine clean catch - Urine barbosa top No growth. 01/19/21 22:56 Blood Culture - Preliminary Blood - Venous No growth after 24 hours. 01/19/21 22:56 Blood Culture - Preliminary Blood - Venous No growth after 24 hours. Quality Stroke Does the patient have a stroke diagnosis?: No VTE Prior VTE?: No VTE Risk Level:: Medical - moderate - high VTE Device Contraindication: Treatment Not Indicated VTE Drug Contraindication: N/A - Med Ordered Assessment and Plan (1) Pyelonephritis: Status: Acute (2) Sepsis: Status: Acute (3) Hypercalcinuria: Status: Acute (4) Ureteral stone with hydronephrosis: Status: Acute (5) Nephrolithiasis: Status: Acute (6) SPRING (acute kidney injury): Status: Acute Assessment and Plan: 45-year-old female with past medical history of hypercalciuria and recurrent kidney stone presents to the hospital following lithotripsy with abdominal pain, found to have pyelonephritis # sepsis # 2/2 pyelonephritis No obstruction seen on CT scan underwent lithotripsy on Sunday01/17/2021 Continue cefepime Urine culture negative, pending blood culture # nephrolithiasis no obstructing stone at this time IV fluids # hypercalciuria Continue allopurinol # hypothyroidism continue levothyroxine DVT prophylaxis Lovenox
[2021-01-21] MEDS: Phenazopyridine HCL 100 MG TABLET PO ×2 (12:59→17:28)
[2021-01-21] MEDS: allopurinoL 100 MG TABLET PO (13:00)
[2021-01-21 16:33] VITALS: BP 127/60; PULSE 108; RESP 18; TEMP 36.2; O2SAT 96
[2021-01-21] MEDS: 0.9 % Sodium Chloride Flush 3 ML SYRINGE IVFLUSH (17:28)
[2021-01-21 20:00] VITALS: BP 119/60; PULSE 102; RESP 20; TEMP 37.1; O2SAT 96
[2021-01-22] VITALS (10 sets, daily range): BP systolic 109–131; BP diastolic 53–72; PULSE 86–115; RESP 14–19; TEMP 36.1–37.7; O2SAT 94–98
[2021-01-22] MEDS: Morphine Sulfate 4 MG/ML CARTRIDGE IVPUSH ×5 (00:23→22:12)
[2021-01-22] MEDS: Acetaminophen 325 MG TABLET 650 MG PO ×2 (00:26→07:46)
[2021-01-22] MEDS: cefEPime HCl 1 GM in 0.9 % Sodium Chloride 50 ML IV (06:03)
[2021-01-22] MEDS: Enoxaparin Sodium 40 MG/0.4 ML SYRINGE SUBCUT (06:04)
[2021-01-22] MEDS: Levothyroxine Sodium 75 MCG TABLET PO (06:04)
[2021-01-22 06:10] LABS: Hemoglobin 13.6 g/dl (12.0-16.0); PLT CLUMP 1; Red Cell Distribution Width 12.2 % (11.0-16.0)
[2021-01-22 06:12] LABS: Hematocrit 41.9 % (37-47); Mean Corpuscular HGB Conc 32.5 g/dl (31.0-35.0); Mean Corpuscular Hemoglobin 27.9 pg (27.0-33.0); Mean Platelet Volume 10.9 fL (9.4-12.3); Red Blood Count 4.87 X10*6/uL (4.20-5.50)
[2021-01-22 06:33] LABS: Platelet Count 95 X10*3/uL (160-400)
[2021-01-22 06:39] LABS: Anion Gap 14 (12-20); Blood Urea Nitrogen 11 mg/dL (9-16); Calcium 9.1 mg/dL (8.4-10.2); Carbon Dioxide 29 mmol/L (22-29); Chloride 100 mmol/L (96-108); Creatinine Clr Calc Pharmacy 54.9; Estimated Glomerular Filt Rate 55; Glucose Random 96 mg/dL (60-115); Potassium 3.6 mmol/L (3.3-5.1); Sodium 139 mmol/L (135-145)
[2021-01-22] MEDS: allopurinoL 100 MG TABLET PO (07:44)
[2021-01-22] MEDS: Phenazopyridine HCL 100 MG TABLET PO ×3 (07:44→16:35)
[2021-01-22] MEDS: ondansetron HCL 4 MG/2 ML VIAL IVPUSH ×2 (07:46→16:36)
[2021-01-22] MEDS: Lactated Ringers 1,000 ML 100 ML IVCONT ×2 (09:59→19:57)
[2021-01-22] MEDS: Ketorolac Tromethamine 15 MG/ML VIAL 30 MG IVPUSH (10:43)
[2021-01-22] MEDS: cefTRIAXone sodium 1 GM in 0.9 % Sodium Chloride 50 ML IV (10:43)
[2021-01-22] MEDS: Ampicillin Sodium 1 GM in 0.9 % Sodium Chloride 100 ML IV ×3 (11:48→22:15)
[2021-01-22] MEDS: Ibuprofen 400 MG TABLET PO (11:49)
--- NOTE | 2021-01-22 14:23 | P.PNIM_ITS ---
Subjective Subjective Date of Service: 01/22/21 Interval History: the patient was seen and evaluated this morning Laying in bed, complaining having chills and fever episodes associated with back pain and hematuria Had low-grade fevers overnight and reporting chills No reported other overnight events. Systemic review: Reporting fever, chills and weakness No chest pain, palpitation No shortness of breath or coughing No abdominal pain, nausea or vomiting Burning urination back pain, still having hematuria No any rash or wounds Physical Exam Vital Signs: Vital Signs: Last Vital Signs Temp 97.5 F 01/22/21 12:00 Pulse 91 01/22/21 12:00 Resp 16 01/22/21 12:00 BP 109/54 L 01/22/21 12:00 Pulse Ox 97 01/22/21 12:00 Body Mass Index 22.1 Const: Other: Constitutional : Alert, oriented, not in distress Neck : Normal inspection, Supple Cardiovascular : RRR, S1 S2, no lower extremity edema Respiratory : Good bilateral air entry, no crackles, wheezes or rhonchi Gastrointestinal: soft, lax, Normal bowel sounds, Non tender Skin : Warm/Dry, No rash CVA tenderness on the left side Neurological : Alert & oriented x3, No focal deficit Objective Data Current Medications Generic Name Dose Route Start Last Admin Trade Name Freq PRN Reason Stop Dose Admin Acetaminophen 650 mg 01/20/21 05:36 01/22/21 07:46 Acetaminophen 325 Mg Tablet PO 650 mg Q6H PRN Administration Pain, Mild (Pain Scale 1-3) Allopurinol 100 mg 01/21/21 12:50 01/22/21 07:44 Allopurinol 100 Mg Tablet PO 100 mg DAILY YOKASTA Administration Docusate Sodium 100 mg 01/20/21 05:36 Docusate Sodium 100 Mg Capsule PO DAILY PRN Constipation Enoxaparin Sodium 40 mg 01/20/21 06:00 01/22/21 06:04 Enoxaparin Sodium 40 Mg/0.4 Ml Syringe SUBCUT 40 mg Q24H YOKASTA Administration Famotidine 20 mg 01/22/21 13:50 Famotidine 20 Mg Tablet PO BID YOKASTA Lactated Ringer's 1,000 mls @ 100 mls/hr 01/20/21 06:00 01/22/21 09:59 Lr IVCONT 100 mls/hr .Q10H YOKASTA Administration Ceftriaxone Sodium 1 gm/ 50 mls @ 100 mls/hr 01/22/21 10:30 01/22/21 11:25 Sodium Chloride IV Infused Q24H YOKASTA Infusion Ampicillin Sodium 1 gm/ Sodium 100 mls @ 200 mls/hr 01/22/21 11:00 01/22/21 12:32 Chloride IV Infused Q6H YOKASTA Infusion Ibuprofen 400 mg 01/22/21 12:00 01/22/21 11:49 Ibuprofen 400 Mg Tablet PO 400 mg TIDWM YOKASTA Administration Levothyroxine Sodium 75 mcg 01/20/21 06:00 01/22/21 06:04 Levothyroxine Sodium 75 Mcg Tablet PO 75 mcg DAILY@0600 [facility] OF [facility] Administration Morphine Sulfate 4 mg 01/20/21 05:36 01/22/21 11:50 Morphine Sulfate 4 Mg/Ml Cartridge IVPUSH 4 mg Q4H PRN Administration Pain, Severe (Pain Scale 7-10) Ondansetron HCl 4 mg 01/20/21 05:36 01/22/21 07:46 Ondansetron Hcl 4 Mg/2 Ml Vial IVPUSH 4 mg Q8H PRN Administration Nausea and Vomiting Phenazopyridine HCl 100 mg 01/21/21 12:50 01/22/21 11:49 Phenazopyridine Hcl 100 Mg Tablet PO 01/23/21 08:01 100 mg TIDWM [facility] Administration Sodium Chloride 3 ml 01/20/21 08:00 01/22/21 07:20 0.9 % Sodium Chloride Flush 3 Ml Syringe IVFLUSH Not Given QSHIFT ON LICENSE OF [facility] Labs CBC & Chem 7: 01/22/21 05:27 01/22/21 05:27 Labs: Laboratory Results - last 24 hr 01/22/21 01/22/21 05:27 05:27 WBC 7.0 RBC 4.87 Hgb 13.6 Hct 41.9 MCV 86.0 MCH 27.9 MCHC 32.5 RDW 12.2 Plt Count 95 L MPV 10.9 Absolute Nucleated RBC 0.000 Nucleated RBC % (auto) 0.0 Sodium 139 Potassium 3.6 Chloride 100 Carbon Dioxide 29 Anion Gap 14 BUN 11 Creatinine 1.07 Estim Creat Clear Calc 54.9 Estimated GFR 55 Random Glucose 96 Calcium 9.1 Microbiology Microbiology Results: Microbiology 01/19/21 22:56 Blood Culture - Preliminary Blood - Venous No growth after 48 hours. 01/19/21 22:56 Blood Culture - Preliminary Blood - Venous No growth after 48 hours. Quality Stroke Does the patient have a stroke diagnosis?: No VTE Prior VTE?: No VTE Risk Level:: Medical - moderate - high VTE Device Contraindication: Treatment Not Indicated VTE Drug Contraindication: N/A - Med Ordered Assessment and Plan (1) Pyelonephritis: Status: Acute (2) Sepsis: Status: Acute (3) Hypercalcinuria: Status: Acute (4) Ureteral stone with hydronephrosis: Status: Acute (5) Nephrolithiasis: Status: Acute (6) SPRING (acute kidney injury): Status: Acute Assessment and Plan: 45-year-old female with past medical history of hypercalciuria and recurrent kidney stone presents to the hospital following lithotripsy with abdominal pain, found to have pyelonephritis # sepsis # 2/2 pyelonephritis No obstruction seen on CT scan underwent lithotripsy on Sunday01/17/2021 Urine and blood cultures negative Discontinue cefepime Start ampicillin and ceftriaxone to get ID evaluation # nephrolithiasis no obstructing stone at this time IV fluids # hypercalciuria Continue allopurinol # hypothyroidism continue levothyroxine DVT prophylaxis Lovenox
[2021-01-22] MEDS: Famotidine 20 MG TABLET PO ×2 (14:32→19:56)
--- NOTE | 2021-01-22 22:04 | W.PM.IDCN ---
History of Present Illness Data of Consult Service Date: 01/22/21 Requesting physician: Jak Diaz Primary Care Provider: Fam Goins MD HPI Reason for consult: fever of unknown origin She presents with weakness and abdominal discomfort,01/15 She has had lithotripsy for nephrolithiasis. She is now on Ceftriaxone and Ampicillin. She has longstanding kidney stones and is adjusting diet. 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 Nephrolithiasis Non-toxic multinodular goiter Ureteral stone with hydronephrosis Family History Family History Father Diabetes mellitus Mother Thyroid cancer Family history: reviewed and not pertinent Surgical History Surgical History History of ankle surgery History of hip surgery History of knee surgery Social History Social History Household Members: Family Housing: House Do you presently have visiting nurse or other home services: No Alcohol intake: never Patient Tobacco Use Status: Never used Tobacco Second Hand Smoke Exposure: No Use of substances other than those prescribed or required for medical reasons: No Advance Directives: No Patient : No service: No Current occupational status: employed Meds Allergies Allergy/AdvReac Type Severity Reaction Status Date / Time No Known Allergies Allergy Verified 01/19/21 21:39 [No Known Allergies*] Active Medications: Current Medications Generic Name Dose Route Start Last Admin Trade Name Freq PRN Reason Stop Dose Admin Acetaminophen 650 mg 01/20/21 05:36 01/22/21 07:46 Acetaminophen 325 Mg Tablet PO 650 mg Q6H PRN Administration Pain, Mild (Pain Scale 1-3) Allopurinol 100 mg 01/21/21 12:50 01/22/21 07:44 Allopurinol 100 Mg Tablet PO 100 mg DAILY YOKASTA Administration Docusate Sodium 100 mg 01/20/21 05:36 Docusate Sodium 100 Mg Capsule PO DAILY PRN Constipation Enoxaparin Sodium 40 mg 01/20/21 06:00 01/22/21 06:04 Enoxaparin Sodium 40 Mg/0.4 Ml Syringe SUBCUT 40 mg Q24H YOKASTA Administration Famotidine 20 mg 01/22/21 13:50 01/22/21 19:56 Famotidine 20 Mg Tablet PO 20 mg BID YOKASTA Administration Lactated Ringer's 1,000 mls @ 100 mls/hr 01/20/21 06:00 01/22/21 19:57 Lr IVCONT 100 mls/hr .Q10H YOKASTA Administration Ceftriaxone Sodium 1 gm/ 50 mls @ 100 mls/hr 01/22/21 10:30 01/22/21 11:25 Sodium Chloride IV Infused Q24H YOKASTA Infusion Ampicillin Sodium 1 gm/ Sodium 100 mls @ 200 mls/hr 01/22/21 11:00 01/22/21 17:10 Chloride IV Infused Q6H [facility] Infusion Promethazine HCl 6.25 mg/ 50.25 mls @ 201 mls/hr 01/22/21 20:16 Sodium Chloride IV Q6H PRN Nausea and Vomiting Ibuprofen 400 mg 01/22/21 12:00 01/22/21 16:35 Ibuprofen 400 Mg Tablet PO Not Given TIDWM [facility] Levothyroxine Sodium 75 mcg 01/20/21 06:00 01/22/21 06:04 Levothyroxine Sodium 75 Mcg Tablet PO 75 mcg DAILY@0600 [facility] Administration Morphine Sulfate 4 mg 01/20/21 05:36 01/22/21 16:36 Morphine Sulfate 4 Mg/Ml Cartridge IVPUSH 4 mg Q4H PRN Administration Pain, Severe (Pain Scale 7-10) Phenazopyridine HCl 100 mg 01/21/21 12:50 01/22/21 16:35 Phenazopyridine Hcl 100 Mg Tablet PO 01/23/21 08:01 100 mg TIDWM [facility] Administration Sodium Chloride 3 ml 01/20/21 08:00 01/22/21 15:05 0.9 % Sodium Chloride Flush 3 Ml [facility] Medications Medication Instructions Recorded Confirmed Last Taken Type allopurinol 100 mg tablet 1 tab PO DAILY 01/20/21 01/20/21 01/19/21 History indapamide 2.5 mg tablet 1 tab PO DAILY 01/20/21 01/20/21 01/19/21 History levothyroxine 75 mcg tablet 1 tab PO DAILY 01/20/21 01/20/21 01/19/21 History oxycodone-acetaminophen 5 mg-325 1 tab PO Q6H PRN 01/20/21 01/20/21 01/19/21 History mg tablet pyridoxine (vitamin B6) 100 mg 1 tab PO DAILY 01/20/21 01/20/21 01/19/21 History tablet (Vitamin B-6) Physical Exam Vital Signs: Vital Signs: Last Vital Signs Temp 96.9 F 01/22/21 19:07 Pulse 94 01/22/21 19:07 Resp 14 01/22/21 19:07 BP 131/69 01/22/21 19:07 Pulse Ox 97 01/22/21 19:07 Body Mass Index 22.1 Const: General: cooperative HENMT: Mouth: Normal oral and palatal mucosa present Resp: Effort & Inspection: normal respiratory effort Cardio: Rate: regular rate GI: Palpation (GI): Soft to palpation and Tenderness to palpation present (GI) Skin: General skin exam: no rashes or lesions noted Results Labs CBC & Chem 7: 01/23/21 05:52 01/24/21 07:13 Labs: Short CBC 01/22/21 Range/Units 05:27 WBC 7.0 (4.8-10.8) X10*3/uL Hgb 13.6 (12.0-16.0) g/dl Hct 41.9 (37-47) % Plt Count 95 L (160-400) X10*3/uL BMP 01/22/21 05:27 Sodium 139 Potassium 3.6 Chloride 100 Carbon Dioxide 29 BUN 11 Creatinine 1.07 Calcium 9.1 Microbiology Microbiology Results: Microbiology 01/19/21 22:56 Blood - Venous Blood Culture - Preliminary No growth after 48 hours. 01/19/21 22:56 Blood - Venous Blood Culture - Preliminary No growth after 48 hours. 01/19/21 21:17 Urine clean catch - Urine barbosa top Urine Culture - Final No growth. Assessment and Plan (1) Hypercalcinuria: (2) Pyelonephritis: Status: Resolved Fever and WBC unremarkable Would continue Ceftriaxone and Ampicillin for possible proximal UTIs Consider change to po Ceftin and Amoxicllin for 14 d on discharge po Amoxicillin for 14 dy
[2021-01-23] MEDS: Morphine Sulfate 4 MG/ML CARTRIDGE IVPUSH ×4 (03:21→21:29)
[2021-01-23 04:00] VITALS: BP 120/56; PULSE 105; RESP 16; TEMP 36.2; O2SAT 97
[2021-01-23] MEDS: Ampicillin Sodium 1 GM in 0.9 % Sodium Chloride 100 ML IV ×4 (05:50→21:31)
[2021-01-23] MEDS: Levothyroxine Sodium 75 MCG TABLET PO (05:51)
[2021-01-23] MEDS: Enoxaparin Sodium 40 MG/0.4 ML SYRINGE SUBCUT (05:51)
[2021-01-23] MEDS: Lactated Ringers 1,000 ML 100 ML IVCONT (05:54)
[2021-01-23 06:35] LABS: PLT CLUMP 1
[2021-01-23 06:36] LABS: Hematocrit 38.1 % (37-47); Hemoglobin 12.3 g/dl (12.0-16.0); Mean Corpuscular HGB Conc 32.3 g/dl (31.0-35.0); Mean Corpuscular Volume 86.6 fL (80-98); Mean Platelet Volume 11.4 fL (9.4-12.3); Red Cell Distribution Width 12.3 % (11.0-16.0); White Blood Count 5.6 X10*3/uL (4.8-10.8)
[2021-01-23 07:02] LABS: Platelet Count 87 X10*3/uL (160-400)
[2021-01-23 07:07] LABS: Anion Gap 12 (12-20); Blood Urea Nitrogen 10 mg/dL (9-16); Calcium 8.7 mg/dL (8.4-10.2); Carbon Dioxide 28 mmol/L (22-29); Chloride 105 mmol/L (96-108); Creatinine Clr Calc Pharmacy 61.2; Estimated Glomerular Filt Rate > 60; Glucose Random 96 mg/dL (60-115); Potassium 4.5 mmol/L (3.3-5.1); Sodium 140 mmol/L (135-145)
[2021-01-23] MEDS: Ibuprofen 400 MG TABLET PO ×3 (07:57→15:36)
[2021-01-23] MEDS: Phenazopyridine HCL 100 MG TABLET PO (07:57)
[2021-01-23] MEDS: allopurinoL 100 MG TABLET PO (07:58)
[2021-01-23] MEDS: Famotidine 20 MG TABLET PO ×2 (07:58→21:31)
[2021-01-23 08:00] VITALS: BP 131/67; PULSE 120; RESP 19; TEMP 37.6; O2SAT 98
[2021-01-23] MEDS: Docusate Sodium 100 MG CAPSULE PO (08:20)
[2021-01-23] MEDS: cefTRIAXone sodium 1 GM in 0.9 % Sodium Chloride 50 ML IV (11:10)
[2021-01-23] MEDS: Butalb/Acetamin/Caff 50/325/40 TABLET 1 TAB PO (11:18)
[2021-01-23 11:41] VITALS: BP 102/62; PULSE 84; RESP 18; TEMP 36.9; O2SAT 98
--- NOTE | 2021-01-23 13:04 | HO.PM.IMPN ---
Subjective Subjective Date of Service: 01/23/21 Interval History: The patient was seen and evaluated this morning Laying in bed, mild improvement of chills and fever episodes associated with back pain and hematuria Had low-grade fevers overnight and reporting chills No reported other overnight events. Systemic review: Reporting fever, chills and weakness No chest pain, palpitation No shortness of breath or coughing No abdominal pain, nausea or vomiting Burning urination back pain, still having hematuria No any rash or wounds Physical Exam Vital Signs: Vital Signs: Last Vital Signs Temp 98.5 F 01/23/21 11:41 Pulse 84 01/23/21 11:41 Resp 18 01/23/21 11:41 BP 102/62 01/23/21 11:41 Pulse Ox 98 01/23/21 11:41 Body Mass Index 22.1 Const: Other: Constitutional : Alert, oriented, not in distress Neck : Normal inspection, Supple Cardiovascular : RRR, S1 S2, no lower extremity edema Respiratory : Good bilateral air entry, no crackles, wheezes or rhonchi Gastrointestinal: soft, lax, Normal bowel sounds, Non tender Skin : Warm/Dry, No rash CVA tenderness on the left side Neurological : Alert & oriented x3, No focal deficit Objective Data Current Medications Generic Name Dose Route Start Last Admin Trade Name Freq PRN Reason Stop Dose Admin Acetaminophen 650 mg 01/20/21 05:36 01/22/21 07:46 Acetaminophen 325 Mg Tablet PO 650 mg Q6H PRN Administration Pain, Mild (Pain Scale 1-3) Acetaminophen/Butalbital/Caffeine 1 tab 01/23/21 10:51 01/23/21 11:18 Butalb/Acetamin/Caff 50/325/40 Tablet PO 1 tab Q4H PRN Administration Headache Allopurinol 100 mg 01/21/21 12:50 01/23/21 07:58 Allopurinol 100 Mg Tablet PO 100 mg DAILY YOKASTA Administration Docusate Sodium 100 mg 01/20/21 05:36 01/23/21 08:20 Docusate Sodium 100 Mg Capsule PO 100 mg DAILY PRN Administration Constipation Enoxaparin Sodium 40 mg 01/20/21 06:00 01/23/21 05:51 Enoxaparin Sodium 40 Mg/0.4 Ml Syringe SUBCUT 40 mg Q24H YOKASTA Administration Famotidine 20 mg 01/22/21 13:50 01/23/21 07:58 Famotidine 20 Mg Tablet PO 20 mg BID YOKASTA Administration Ceftriaxone Sodium 1 gm/ 50 mls @ 100 mls/hr 01/22/21 10:30 01/23/21 11:44 Sodium Chloride IV Infused Q24H YOKASTA Infusion Ampicillin Sodium 1 gm/ Sodium 100 mls @ 200 mls/hr 01/22/21 11:00 01/23/21 12:32 Chloride IV Infused Q6H YOKASTA Infusion Promethazine HCl 6.25 mg/ 50.25 mls @ 201 mls/hr 01/22/21 20:16 01/23/21 08:43 Sodium Chloride IV Infused Q6H PRN Infusion Nausea and Vomiting Ibuprofen 400 mg 01/22/21 12:00 01/23/21 11:17 Ibuprofen 400 Mg Tablet PO 400 mg TIDWM [facility] Administration Levothyroxine Sodium 75 mcg 01/20/21 06:00 01/23/21 05:51 Levothyroxine Sodium 75 Mcg Tablet PO 75 mcg DAILY@0600 [facility] Administration Morphine Sulfate 4 mg 01/20/21 05:36 01/23/21 08:13 Morphine Sulfate 4 Mg/Ml Cartridge IVPUSH 4 mg Q4H PRN Administration Pain, Severe (Pain Scale 7-10) Phenazopyridine HCl 200 mg 01/23/21 12:00 Phenazopyridine Hcl 200 Mg Tablet PO 01/25/21 08:01 TIDWM [facility] Sodium Chloride 3 ml 01/20/21 08:00 01/23/21 07:58 0.9 % Sodium Chloride Flush 3 Ml Syringe IVFLUSH Not Given QSHIFT [facility] Labs CBC & Chem 7: 01/23/21 05:52 01/23/21 05:52 Labs: Laboratory Results - last 24 hr 01/23/21 01/23/21 05:52 05:52 WBC 5.6 RBC 4.40 Hgb 12.3 Hct 38.1 MCV 86.6 MCH 28.0 MCHC 32.3 RDW 12.3 Plt Count 87 L MPV 11.4 Absolute Nucleated RBC 0.000 Nucleated RBC % (auto) 0.0 Sodium 140 Potassium 4.5 D Chloride 105 Carbon Dioxide 28 Anion Gap 12 BUN 10 Creatinine 0.96 Estim Creat Clear Calc 61.2 Estimated GFR > 60 Random Glucose 96 Calcium 8.7 Quality Stroke Does the patient have a stroke diagnosis?: No VTE Prior VTE?: No VTE Risk Level:: Medical - moderate - high VTE Device Contraindication: Treatment Not Indicated VTE Drug Contraindication: N/A - Med Ordered Assessment and Plan (1) Pyelonephritis: Status: Acute (2) Sepsis: Status: Acute (3) Hypercalcinuria: Status: Acute (4) Ureteral stone with hydronephrosis: Status: Acute (5) Nephrolithiasis: Status: Acute (6) SPRING (acute kidney injury): Status: Acute Assessment and Plan: 45-year-old female with past medical history of hypercalciuria and recurrent kidney stone presents to the hospital following lithotripsy with abdominal pain, found to have pyelonephritis # sepsis # 2/2 pyelonephritis # loin pain No obstruction seen on CT scan Repeated CT scan this morning showing no obstruction underwent lithotripsy on Sunday01/17/2021 Urine and blood cultures negative Discontinue cefepime Continue ampicillin and ceftriaxone day 2 Id input appreciated # nephrolithiasis no obstructing stone at this time IV fluids # hypercalciuria Continue allopurinol # hypothyroidism continue levothyroxine DVT prophylaxis Lovenox
[2021-01-23] MEDS: Phenazopyridine HCL 200 MG TABLET PO ×2 (13:15→15:35)
[2021-01-23 15:08] VITALS: BP 112/67; PULSE 84; RESP 16; TEMP 35.7; O2SAT 98
[2021-01-23] MEDS: 0.9 % Sodium Chloride Flush 3 ML SYRINGE IVFLUSH ×2 (16:09→21:34)
[2021-01-23 19:05] VITALS: BP 111/64; PULSE 92; RESP 16; TEMP 35.9; O2SAT 98
[2021-01-23 23:58] VITALS: BP 122/67; PULSE 84; RESP 16; TEMP 36.4; O2SAT 98
[2021-01-24] MEDS: Morphine Sulfate 4 MG/ML CARTRIDGE IVPUSH ×2 (03:48→07:39)
[2021-01-24 04:00] VITALS: BP 114/71; PULSE 87; RESP 18; TEMP 36.3; O2SAT 97
[2021-01-24] MEDS: Ampicillin Sodium 1 GM in 0.9 % Sodium Chloride 100 ML IV ×2 (06:21→11:56)
[2021-01-24] MEDS: Enoxaparin Sodium 40 MG/0.4 ML SYRINGE SUBCUT (06:22)
[2021-01-24] MEDS: Levothyroxine Sodium 75 MCG TABLET PO (06:23)
[2021-01-24 07:39] VITALS: RESP 18
[2021-01-24] MEDS: 0.9 % Sodium Chloride Flush 3 ML SYRINGE IVFLUSH (07:39)
[2021-01-24] MEDS: allopurinoL 100 MG TABLET PO (07:40)
[2021-01-24] MEDS: Phenazopyridine HCL 200 MG TABLET PO ×2 (07:40→11:57)
[2021-01-24] MEDS: Famotidine 20 MG TABLET PO (07:40)
[2021-01-24 07:49] VITALS: BP 124/70; PULSE 99; RESP 18; TEMP 36.4; O2SAT 98
[2021-01-24 08:26] LABS: Anion Gap 9 (12-20); Blood Urea Nitrogen 13 mg/dL (9-16); Calcium 8.4 mg/dL (8.4-10.2); Carbon Dioxide 29 mmol/L (22-29); Chloride 106 mmol/L (96-108); Creatinine Clr Calc Pharmacy 71.7; Estimated Glomerular Filt Rate > 60; Glucose Random 88 mg/dL (60-115); Potassium 4.4 mmol/L (3.3-5.1); Sodium 140 mmol/L (135-145)
[2021-01-24] MEDS: cefTRIAXone sodium 1 GM in 0.9 % Sodium Chloride 50 ML IV (11:08)
[2021-01-24 11:48] VITALS: BP 129/68; PULSE 110; RESP 18; TEMP 36.9; O2SAT 98
[2021-01-24] MEDS: Ibuprofen 400 MG TABLET PO (13:02)
--- NOTE | 2021-01-24 13:52 | P.DS_ITS ---
DS: Providers Provider Date of Service: 01/24/21 Date of admission: 01/20/21 05:28 Primary care physician: Fam Goins MD Consults: 01/22/21 16:53 Consult to Infectious Diseases Routine Consulting Provider: Sary Dorman Reason for consultation: Pyelonephritis with persistent fever and chills DS: Diagnosis Discharge Diagnosis (1) Pyelonephritis: Status: Acute (2) Sepsis: Status: Acute (3) Hypercalcinuria: Status: Acute (4) Ureteral stone with hydronephrosis: Status: Acute (5) Nephrolithiasis: Status: Acute (6) SPRING (acute kidney injury): Status: Acute DS: Medications Discharge Medications Home Medications: Home Medications Medication Instructions Recorded Confirmed allopurinol 1 tab PO DAILY 01/20/21 01/20/21 indapamide 1 tab PO DAILY 01/20/21 01/20/21 levothyroxine 1 tab PO DAILY 01/20/21 01/20/21 oxycodone-acetaminophen 1 tab PO Q6H PRN 01/20/21 01/20/21 pyridoxine (vitamin B6) [Vitamin 1 tab PO DAILY 01/20/21 01/20/21 B-6] Previous Rx's Medication Instructions Recorded amoxicillin 875 mg PO BID 12 Days #24 tab 01/24/21 cefuroxime axetil 500 mg PO BID 12 Days #24 tab 01/24/21 ondansetron 4 mg PO Q8H PRN #14 tab 01/24/21 oxycodone 5 mg PO Q6H PRN #12 cap 01/24/21 DS: Summary Hospital Course Hospital Course: Admission note HPI Old female with past medical history of hypothyroidism, hypercalciuria, history of kidney stones, acute [place] syndrome who presents to the hospital with c omplaints of abdominal pain. Patient reports that she underwent lithotripsy for kidney stone outpatient on Sunday, but yesterday developed left flank pain, abdominal pain, nausea, low appetite, fever and chills. She called her urologist and decided to come to the ED for further management. She she is having suprapubic pain. Flank pain is radiating to the groin. She is also having urinary frequency, urgency, dysuria. She denies any chest pain, no diarrhea constipation, no lower extremity edema, headache change in vision, no numbness weakness or tingling. On arrival to the ED hemodynamically stable with a temp of 100?, heart rate of 120, respiratory rate of 18, blood pressure of 144/78, satting 97 on room air Labs are significant for WBC count of 9.2, BUN of 23, creatinine of 1.29 with a baseline around 0.8, UA positive for leukocyte Estrace, nitrites, and WBC Abdominal CT shows mild mural enhancement of the left ureter and mildly dilated renal pelvis which could reflect ascending infection in the setting of flank pain. Few tiny scattered calculi in the left kidney with no obstructing urethral calculus seen. St moral prominence of the urinary bladder, trace nonspecific pelvic free fluid Hospital course Patient was admitted to the hospital for treatment of sepsis secondary to pyelonephritis as no obstruction was seen on CT scan. The patient in started on cefepime as urine and blood cultures remain negative. She was noticed to continue to spike low-grade fevers and reporting chills and pain. Antibiotic was changed to ceftriaxone and ampicillin to cover fall Enterococcus and other g negatives. Infectious Disease was contacted and the confirmed recurrent regimen with suggestion of discharging the patient home on amoxicillin and Ceftin for total of 14 days. Time Spent with Patient Time attestation: Total time spent providing and/or coordinating discharge services: Discharge coordination time: Greater than 30 minutes Quality: Stroke Does the patient have a stroke diagnosis?: No Physical Exam Vital Signs: Vital Signs: Last Vital Signs Temp 98.4 F 01/24/21 11:48 Pulse 110 H 01/24/21 11:48 Resp 18 01/24/21 11:48 BP 129/68 01/24/21 11:48 Pulse Ox 98 01/24/21 11:48 Body Mass Index 22.1 Const: Other: Constitutional : Alert, oriented, not in distress Neck : Normal inspection, Supple Cardiovascular : RRR, S1 S2, no lower extremity edema Respiratory : Good bilateral air entry, no crackles, wheezes or rhonchi Gastrointestinal: soft, lax, Normal bowel sounds, Non tender Skin : Warm/Dry, No rash mild CVA tenderness on the left side Neurological : Alert & oriented x3, No focal deficit DS: Data Data Completed and Pending Labs on day of discharge: Laboratory Results - last 24 hr 01/24/21 07:13 Sodium 140 Potassium 4.4 Chloride 106 Carbon Dioxide 29 Anion Gap 9 L BUN 13 Creatinine 0.82 Estim Creat Clear Calc 71.7 Estimated GFR > 60 Random Glucose 88 Calcium 8.4 Preliminary micro results at discharge 01/19/21 22:56 Blood Culture - Preliminary Blood - Venous No growth after 48 hours. 01/19/21 22:56 Blood Culture - Preliminary Blood - Venous No growth after 48 hours. Discharge Plan Discharge Patient Disposition: Home, Self-Care Discharge Diagnosis: Pylonephritis Sepsis Acute kidney injury Referrals: Fam Goins MD [Primary Care Provider] - 1 Week Discharge Medications: New amoxicillin 875 mg tablet 875 mg PO BID 12 Days Qty: 24 RF: 0 cefuroxime axetil 500 mg tablet 500 mg PO BID 12 Days Qty: 24 RF: 0 ondansetron 4 mg tablet,disintegrating 4 mg PO Q8H PRN (Reason: nausea and vomiting) Qty: 14 RF: 0 oxycodone 5 mg capsule 5 mg PO Q6H PRN (Reason: pain) Qty: 12 RF: 0 Continued indapamide 2.5 mg tablet 1 tab PO DAILY RF: 0 allopurinol 100 mg tablet 1 tab PO DAILY RF: 0 levothyroxine 75 mcg tablet 1 tab PO DAILY RF: 0 oxycodone-acetaminophen 5-325 mg tablet 1 tab PO Q6H PRN (Reason: pain) RF: 0 pyridoxine (vitamin B6) [Vitamin B-6] 100 mg tablet 1 tab PO DAILY RF: 0 Discharge Orders: Discharge Order (Routine); Ordered 01/24/21 Ordered By: Jak Diaz Diet: advance to usual diet Activity on Discharge: As tolerated Stand Alone Forms: Patient Portal Discharge page Care Plan Goals: Read below Health Concerns: Read below Plan of Treatment: Admitted to the hospital for picture of sepsis as a result of urinary tract infection. Your treated with IV antibiotics and pain medications with good response over the course of hospital stay. Evaluated by infectious disease specialist who recommended to finish total of 14 days of antibiotics. Assessment: Continue amoxicillin and Ceftin for 12 more days Use Zofran as needed for nausea Use oxycodone as needed for severe pain Use Advil 3 times a day as needed to keep pain under control
[2021-01-24] MEDS: Acetaminophen 325 MG TABLET 650 MG PO (14:06)
--- NOTE | 2021-01-24 14:22 | MHC.CM.PN ---
nurse day care worker ntoe electronic medical record reviewed along with case discussed with staff nurse and hospitalist . patient will be dischagre home today , home no services discharge plan home no services pcp dr jamel carlin transportation family pt to call for post hospital discharge follow up
== END 2021-01-24 14:31 | disposition home or self-care (01) | DRG 862 ==
LOC: HO.ED 01-20 04:17 → HO.EDOVER 01-20 05:42 → HO.S3 01-20 10:48
PROVIDERS: Admitting Provider Internal Medicine; Emergency Provider Student in an Organized Health Care Education/Training Program; PCP Internal Medicine; Visit Provider Student in an Organized Health Care Education/Training Program
DX: T81.44XA Sepsis following a procedure, initial encounter (principal); A41.9 Sepsis, unspecified organism; N13.6 Pyonephrosis; N17.9 Acute kidney failure, unspecified; R82.994 Hypercalciuria; E03.9 Hypothyroidism, unspecified; Z87.442 Personal history of urinary calculi; Z20.822 Contact with and (suspected) exposure to COVID-19; Z79.899 Other long term (current) drug therapy
CPT/HCPCS: 36415; 74176; 74177; 80048; 80053; 81001; 81003; 81025; 83605; 85025; 85027; 87040; 87086; 87635; 99285; J0290; J0692; J0696; J1650; J1885; J2270; J2405; J2550; Q9967

== ENCOUNTER 2021-01-24 17:12 | Emergency (ER) | payer OTHER, SELFPAY ==
--- NOTE | ~2021-01-24 | XR_ITS ---
EXAMINATION: CHEST 2 VIEWS CLINICAL INFORMATION: fever . COMPARISON: No recent pertinent prior studies are available for comparison. TECHNIQUE: PA and lateral views of the chest obtained. FINDINGS: The lungs are well expanded. No focal infiltrate, effusion, edema, or pneumothorax. Cardiac and mediastinal silhouettes are within normal limits for technique. No acute bony abnormality seen XR/XR chest 2V IMPRESSION: No evidence of acute disease
[2021-01-24 18:42] VITALS: BP 145/90; PULSE 104; RESP 20; TEMP 37.1; O2SAT 100; BMI 22.1
--- NOTE | 2021-01-24 19:51 | ED_ITS ---
HPI - Abdominal Pain General Chief Complaint: Abdominal Pain Stated Complaint: Fever Time Seen by Provider: 01/24/21 17:34 Source: patient Mode of arrival: ambulatory Limitations: no limitations History of Present Illness HPI narrative: Patient is discharged earlier today for sepsis secondary to pyelonephritis on Ceftin came back as she felt her heart rate was beating fast 115 beats per minute complaining of generalized abdominal spasm dizziness chills nausea but no vomiting or diarrhea patient feels that she is still sick and need to stay in the hospital Related Data Home Medications Medication Instructions Recorded Confirmed allopurinol 1 tab PO DAILY 01/20/21 01/20/21 indapamide 1 tab PO DAILY 01/20/21 01/20/21 levothyroxine 1 tab PO DAILY 01/20/21 01/20/21 oxycodone-acetaminophen 1 tab PO Q6H PRN 01/20/21 01/20/21 pyridoxine (vitamin B6) [Vitamin 1 tab PO DAILY 01/20/21 01/20/21 B-6] Previous Rx's Medication Instructions Recorded amoxicillin 875 mg PO BID 12 Days #24 tab 01/24/21 cefuroxime axetil 500 mg PO BID 12 Days #24 tab 01/24/21 ondansetron 4 mg PO Q8H PRN #14 tab 01/24/21 oxycodone 5 mg PO Q6H PRN #12 cap 01/24/21 phenazopyridine 100 mg tablet 100 mg PO TID PRN 5 Days #15 tab 01/25/21 Allergies Allergy/AdvReac Type Severity Reaction Status Date / Time No Known Allergies Allergy Verified 01/19/21 21:39 [No Known Allergies*] Review of Systems Review of Systems Yes all other systems are reviewed and are negative Physical Exam Vital Signs: Vital Signs: Last Vital Signs Temp 98.7 F 01/24/21 18:42 Pulse 104 H 01/24/21 18:42 Resp 20 01/24/21 18:42 BP 145/90 H 01/24/21 18:42 Pulse Ox 100 01/24/21 18:42 Body Mass Index 22.1 Appearance: Alert. Oriented X3. Anxious Eyes: PERRLA, ENT: Pharynx normal. Oral Mucosa moist Neck: Normal inspection. Neck supple. CVS: Normal heart rate and rhythm. Pulses normal. Respiratory: No respiratory distress. Equal air entry bilateral, no wheezing/rales/rhonchi Abdomen: Soft and mild suprapubic tenderness no rebound tenderness or guarding Bowel sounds are present, no mass palpable, b/l CVA tenderness Skin: Skin warm and dry. Normal skin color. Normal skin turgor. Extremities: No lower extremity edema. No calf tenderness Neuro: Oriented X 3. No motor deficit. No sensory deficit.No cerebellar signs , cranial nerves II-XII intact MDM - Abdominal Pain Medical Records Attestation: I reviewed the patient's medical records. Lab Data Attestation: I reviewed the patient's lab results. Result diagrams: 01/24/21 19:48 01/24/21 19:48 Labs: Lab Results 01/24/21 01/24/21 01/24/21 Range/Units 19:48 19:48 21:13 WBC 6.4 (4.8-10.8) X10*3/uL RBC 4.72 (4.20-5.50) X10*6/uL Hgb 13.1 (12.0-16.0) g/dl Hct 40.8 (37-47) % MCV 86.4 (80-98) fL MCH 27.8 (27.0-33.0) pg MCHC 32.1 (31.0-35.0) g/dl RDW 12.4 (11.0-16.0) % Plt Count 132 L D (160-400) X10*3/uL MPV 10.4 (9.4-12.3) fL Immature Gran % (Auto) 0.2 (0.0-0.4) % Neut % (Auto) 75.8 H (45-73) % Lymph % (Auto) 12.6 L (20-40) % [place] % (Auto) 10.2 (2-11) % Eos % (Auto) 0.9 (0-4) % Baso % (Auto) 0.3 (0-2) % Lymph # (Auto) 0.8 L (1.2-4.9) X10*3/uL [place] # (Auto) 0.7 (0.1-1.2) X10*3/uL Eos # (Auto) 0.1 (0.0-0.4) X10*3/uL Baso # (Auto) 0.0 (0.0-0.2) X10*3/uL Abs Immat Gran (auto) 0.01 (0.00-0.03) X10*3/uL Absolute Neuts (auto) 4.8 (2.0-8.3) X10*3/uL Absolute Nucleated RBC 0.000 (0.0-0.012) X10*3/uL Nucleated RBC % (auto) 0.0 (0.0-0.2) /100WBC Sodium 142 (135-145) mmol/L Potassium 3.9 (3.3-5.1) mmol/L Chloride 106 (96-108) mmol/L Carbon Dioxide 27 (22-29) mmol/L Anion Gap 13 (12-20) BUN 10 (9-16) mg/dL Creatinine 0.88 (0.5-1.4) mg/dL Estim Creat Clear Calc 66.7 Estimated GFR > 60 Random Glucose 95 (60-115) mg/dL Calcium 9.0 D (8.4-10.2) mg/dL Magnesium 2.3 (1.6-2.6) mg/dL Total Bilirubin 0.5 (0.0-1.0) mg/dL AST 81 H (5-31) U/L ALT 208 H (0-31) U/L Alkaline Phosphatase 103 D (39-117) U/L Total Protein 6.9 (6.5-8.0) g/dL Albumin 4.1 (3.5-5.0) g/dL Beta HCG, Quant < 2 mIU/mL Urine Color ORANGE Urine Appearance HAZY Urine pH 5.0 (5.0-8.0) Ur Specific [place] 1.015 (1.005-1.025) Urine Protein 2+ H (NEG-TRACE) MG/DL Urine Glucose (UA) 250 H (NEG) MG/DL Urine Ketones 5 (NEG) MG/DL Urine Blood 3+ H (NEG) Urine Nitrite POS H (NEG) Ur Leukocyte Esterase 2+ H (NEG) Urine RBC 30-49 H (0) /HPF Urine WBC 50-75 H (0-4) /HPF Urine WBC Clumps NOTED Ur Squamous Epith Cells 1+ /LPF Urine Bacteria TRACE /LPF Urine Mucus TRACE /LPF Discharge Plan Discharge Clinical Impression: Renal colic Patient Disposition: Home, Self-Care Instructions: Flank Pain (ED) Additional Instructions: Drink plenty of fluids and continue antibiotics and pain medication follow-up with PCP/urologist Prescriptions: No Action phenazopyridine [Pyridium] 100 mg tablet 100 mg PO TID PRN (Reason: pain) 5 Days Qty: 15 RF: 0 indapamide 2.5 mg tablet 1 tab PO DAILY RF: 0 allopurinol 100 mg tablet 1 tab PO DAILY RF: 0 levothyroxine 75 mcg tablet 1 tab PO DAILY RF: 0 oxycodone-acetaminophen 5-325 mg tablet 1 tab PO Q6H PRN (Reason: pain) RF: 0 pyridoxine (vitamin B6) [Vitamin B-6] 100 mg tablet 1 tab PO DAILY RF: 0 amoxicillin 875 mg tablet 875 mg PO BID 12 Days Qty: 24 RF: 0 cefuroxime axetil 500 mg tablet 500 mg PO BID 12 Days Qty: 24 RF: 0 ondansetron 4 mg tablet,disintegrating 4 mg PO Q8H PRN (Reason: nausea and vomiting) Qty: 14 RF: 0 oxycodone 5 mg capsule 5 mg PO Q6H PRN (Reason: pain) Qty: 12 RF: 0 Interventions: ED Discharge Assessment Last Done: 01/24/21 22:30 Discharge Date/Time: 01/24/21 22:40 [facility] Past Medical History Medical History Fibrous dysplasia of bone Aleshia's disease Hypercalcinuria Hypothyroidism Yobany Norris syndrome Nephrolithiasis Non-toxic multinodular goiter Ureteral stone with hydronephrosis Surgical History History of ankle surgery History of hip surgery History of knee surgery Family History Family History Father Diabetes mellitus Mother Thyroid cancer Social History Social History Household Members: Family Housing: House Do you presently have visiting nurse or other home services: No Alcohol intake: never Patient Tobacco Use Status: Never used Tobacco Second Hand Smoke Exposure: No Use of substances other than those prescribed or required for medical reasons: No Advance Directives: No Patient : No service: No Current occupational status: employed
[2021-01-24 19:54] LABS: MANUAL DIFF FLAG NO
[2021-01-24 20:17] LABS: Basophils Percent Auto 0.3 % (0-2); Eosinophils Absolute Auto 0.1 X10*3/uL (0.0-0.4); Eosinophils Percent Auto 0.9 % (0-4); Hematocrit 40.8 % (37-47); Hemoglobin 13.1 g/dl (12.0-16.0); Imm Gran Abs Auto 0.01 X10*3/uL (0.00-0.03); Imm Gran Pct Auto 0.2 % (0.0-0.4); Lymphocytes Absolute Auto 0.8 X10*3/uL (1.2-4.9); Lymphocytes Percent Auto 12.6 % (20-40); Mean Corpuscular HGB Conc 32.1 g/dl (31.0-35.0); Mean Corpuscular Hemoglobin 27.8 pg (27.0-33.0); Mean Corpuscular Volume 86.4 fL (80-98); Mean Platelet Volume 10.4 fL (9.4-12.3); Monocytes Absolute Auto 0.7 X10*3/uL (0.1-1.2); Monocytes Percent Auto 10.2 % (2-11); Neutrophils Absolute Auto 4.8 X10*3/uL (2.0-8.3); Neutrophils Percent Auto 75.8 % (45-73); Platelet Count 132 X10*3/uL (160-400); Red Blood Count 4.72 X10*6/uL (4.20-5.50); Red Cell Distribution Width 12.4 % (11.0-16.0); White Blood Count 6.4 X10*3/uL (4.8-10.8)
[2021-01-24 20:23] LABS: HCG Quantitative < 2 mIU/mL
[2021-01-24 20:28] LABS: Alanine Aminotransferase 208 U/L (0-31); Albumin Level 4.1 g/dL (3.5-5.0); Alkaline Phosphatase 103 U/L (39-117); Anion Gap 13 (12-20); Aspartate Amino Transferase 81 U/L (5-31); Bilirubin Total 0.5 mg/dL (0.0-1.0); Blood Urea Nitrogen 10 mg/dL (9-16); Carbon Dioxide 27 mmol/L (22-29); Chloride 106 mmol/L (96-108); Creatinine Clr Calc Pharmacy 66.7; Estimated Glomerular Filt Rate > 60; Glucose Random 95 mg/dL (60-115); Magnesium 2.3 mg/dL (1.6-2.6); Potassium 3.9 mmol/L (3.3-5.1); Sodium 142 mmol/L (135-145); Total Protein 6.9 g/dL (6.5-8.0)
[2021-01-24] MEDS: 0.9 % Sodium Chloride 1,000 ML 999 ML IVCONT (20:28)
[2021-01-24 21:22] LABS: Glucose Urine UA 250 MG/DL (NEG); Leukocyte Esterase Urine 2+ (NEG); Nitrite Urine POS (NEG); Specific Gravity - Urine 1.015 (1.005-1.025); UACC Culture Trigger YES; Urine Blood 3+ (NEG); Urine Ketones 5 MG/DL (NEG); Urine Protein 2+ MG/DL (NEG-TRACE)
[2021-01-24 21:26] LABS: Appearance Urine HAZY; Color Urine ORANGE
[2021-01-24] MEDS: Ketorolac Tromethamine 15 MG/ML VIAL IVPUSH (21:32)
[2021-01-24 21:33] LABS: Bacteria Urine TRACE /LPF; Mucus Urine TRACE /LPF; RBC Urine 30-49 /HPF (0); Squamous Epithelial Cell Urine 1+ /LPF; WBC Urine 50-75 /HPF (0-4)
[2021-01-24 21:34] LABS: WBC Clumps Urine NOTED
== END 2021-01-24 22:40 | disposition home or self-care (01) ==
PROVIDERS: Physician Assistant Medical; Emergency Provider Internal Medicine; PCP Internal Medicine
DX: N23 Unspecified renal colic (principal)
CPT/HCPCS: 36415; 71046; 80053; 81001; 81003; 83735; 84702; 85025; 87086; 96361; 96374; 96376; 99284; J1885